=== PATIENT | female | born 1980 | race Caucasian/White ===

== ENCOUNTER 2025-09-19 09:58 | Outpatient (REF) | payer MEDICAID, SELFPAY | END 2025-09-19 09:59 | disposition home or self-care (01) | LOC: LBN 09:58 | PROVIDERS: PCP Family Medicine; Visit Provider Podiatrist | DX: S91.102A Unspecified open wound of left great toe without damage to nail, initial encounter (principal); L97.524 Non-pressure chronic ulcer of other part of left foot with necrosis of bone | CPT/HCPCS: 87070; 87075; 87205 ==

== ENCOUNTER 2025-09-19 10:19 | Inpatient (IN) | payer MEDICAID, SELFPAY ==
[2025-09-19] VITALS (27 sets, daily range): BP systolic 95–133; BP diastolic 55–80; PULSE 62–78; RESP 10–26; TEMP 36–36.7; O2SAT 96–100; BMI 33.3
--- NOTE | 2025-09-19 10:34 | W.ED.GENAD ---
Discharge Plan Disposition Patient Disposition: Admit to [facility] Discharge Details Clinical Impression: Diabetic ulcer of left great toe Attending Provider: Edel Reddy Primary Care Provider: Angel Wu ED Provider: Yaniv Long [facility] General Date/Time Provider Initiated Documentation: 09/19/25 10:32. HPI Narrative: MDM This is an overall well-appearing normothermic and not tachycardic 45-year-old diabetic female with left great toe infected ulcer for which podiatry plans to take patient to the OR. No pain out of proportion to suggest necrotizing soft tissue infection. Left foot warm and well-perfused so I am not suspicious for critical limb ischemia so I do not feel patient requires an emergent CT angiogram of her abdomen and pelvis with runoffs. Per recommendation from podiatry will defer MRI in favor of x-ray. Will keep patient n.p.o. She did have coffee this morning at approximately 6 AM but has otherwise been n.p.o. since midnight. Will order blood cultures but defer lactate as I was not suspicious for sepsis. I ordered a 500 cc crystalloid bolus. No ankle erythema nor effusion to suggest septic joint. Based on patient's age and lack of chest pain I did not order an ECG. 11:11 AM CBC with mild normocytic anemia and thrombocytosis. No prior for comparison. No leukocytosis. Mildly elevated ESR. 11:40 AM Basic metabolic panel with no acute electrolyte abnormalities. No prior for comparison. Normal renal function. Elevated CRP. Foot x-ray showing comminuted fracture of the proximal and distal phalanxes of the great toe with severe overlying soft tissue lacerations and deformities. I was in touch with Dr. Ruvalcaba from podiatry who evaluated the patient in clinic just prior to ED arrival. She will take the patient to the OR. I ordered 500 cc crystalloid bolus. I cover the patient with piperacillin/tazobactam and vancomycin. HPI The patient presents for evaluation of an ulcer on her left big toe. She is a diabetic and has been experiencing neuropathy, which led to the development of an ulcer on her left big toe. The condition escalated to cellulitis, necessitating a 10-day course of antibiotics. She reports no fevers, abdominal pain, respiratory distress, chest pain, or dysuria. Her last meal was consumed the previous night. She has an upcoming appointment on 10/03/2025 to check her A1c level. She admits to vaping but does not consume alcohol or use prescription drugs. Exam General: Well-appearing in no acute distress speaking in complete sentences. Head: Normocephalic, atraumatic. Eye: Extraocular eye movements intact. No conjunctival injection. No scleral icterus. Ear, nose, mouth, throat: Grossly normal inspection. Normal voice, handling secretions normally. Neck: Trachea midline. Cardiovascular: Well-perfused distal extremities. Respiratory: Nonlabored respiration. Gastrointestinal: Nondistended abdomen. Musculoskeletal: Left great foot with through and through ulcer of great toe from the medial to lateral side. No proximal streaking signs of infection. Cap refill less than 2 seconds in the left foot. Skin: Normal for age and race, grossly normal temperature and turgor. No acute rash. Neurologic: Alert and appropriate, no apparent acute deficits. GCS 15. Psychiatric: Mood and manner are appropriate. Grooming and personal hygiene are appropriate. Related Data Home Medications ?Medication ?Instructions ?Recorded ?Confirmed atorvastatin 40 mg tablet (Lipitor) 40 mg PO DAILY 09/15/25 09/19/25 buprenorphine 4 mg-naloxone 1 mg 1 film buccal Q24H 09/15/25 09/19/25 sublingual film (Suboxone) bupropion HCl 300 mg 24 hr tablet, 300 mg PO QAM 09/15/25 09/19/25 extended release dexlansoprazole 30 mg 30 mg PO DAILY 09/15/25 09/19/25 capsule,biphase delayed release (Dexilant) lisinopril 20 mg tablet 20 mg PO DAILY 09/15/25 09/19/25 omega 7-buu-cci-fish oil 1,000 mg 1 cap PO DAILY 09/15/25 09/19/25 (120 mg-180 mg) capsule (Fish Oil) rosuvastatin 20 mg sprinkle capsule 20 mg PO DAILY 09/15/25 09/19/25 tirzepatide 15 mg/0.5 mL 15 mg subcut QWEEK 09/15/25 09/19/25 subcutaneous pen injector (Mounjaro) venlafaxine 150 mg 150 mg PO DAILY 09/15/25 09/19/25 capsule,extended release 24 hr venlafaxine 75 mg capsule,extended 75 mg PO DAILY 09/15/25 09/19/25 release 24 hr lamotrigine 100 mg tablet 150 mg PO DAILY 09/19/25 09/19/25 Allergies Allergy/AdvReac Type Severity Reaction Status Date / Time grass pollen Allergy Mild Itching Verified 09/19/25 10:31 ragweed pollen Allergy Mild Itching Verified 09/19/25 10:31 General Stated Complaint: RashLesion STU: 3 Course Vital Signs Vital signs: Vital Signs Temperature 36.4 C 09/19/25 10:25 Pulse 70 09/19/25 10:25 Respiratory Rate 20 09/19/25 10:25 Blood Pressure 133/80 09/19/25 10:25 Pulse Oximetry 98 09/19/25 10:25 Temperature 36.4 C 09/19/25 10:25 Temperature Source Tympanic 09/19/25 10:25 Pulse 70 09/19/25 10:25 Respiratory Rate 20 09/19/25 10:25 Blood Pressure 133/80 09/19/25 10:25 Blood Pressure Position Sitting 09/19/25 10:25 Pulse Oximetry 98 09/19/25 10:25 Oxygen Delivery Method Room Air 09/19/25 10:25 Oxygen Flow Rate 0 09/19/25 10:25 PFSH All Active Problems (Updated 09/19/25 @ 11:23 by Yaniv Long MD) Diabetic ulcer of left great toe (Acute) Cellulitis (Acute) Osteomyelitis of great toe of left foot (Acute) Ulcer of left foot with necrosis of bone (Acute) Uncontrolled diabetes mellitus with hyperglycemia (Acute) Restless leg syndrome (Acute) Morbid obesity (Acute) Panic disorder (Acute) 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) Left hand pain (Acute) Knee pain (Acute) Hyperlipidemia (Acute) GERD (gastroesophageal reflux disease) (Chronic) Dystrophic nail (Acute) Depressive disorder (Chronic) Carpal tunnel syndrome (Acute) Bipolar disorder in remission (Acute) Benign essential hypertension (Acute) Allergic rhinitis (Acute) Trigger finger of left hand (Acute) Medical History Refractory migraine without aura Ureteric stone Toe ulcer, right Tension type headache Counseled by counselor Chronic ulcer of right foot Chronic ulcer of toe of left foot Surgical History H/O adenoidectomy Previous section History of hysteroscopy Social History Smoking risk assessment performed?: No
--- NOTE | 2025-09-19 10:45 | DI.RAD_ITS ---
Exam(s) XR FOOT LT COMPLETE EXAM: XR FOOT LT COMPLETE CLINICAL HISTORY: Left foot pain. TECHNIQUE: 2D digital imaging was performed. Three views. COMPARISON: No exams were available for comparison FINDINGS: BONES: Comminuted fractures involving the proximal and distal phalanges of the great toe. Portion of the distal phalanx are missing. The remaining toes appear intact. JOINTS: No dislocation present. SOFT TISSUE: Large soft tissue lacerations right toe and severe soft tissue swelling. Overlying gauze. No radiopaque foreign body. IMPRESSION: Comminuted fractures of the proximal and distal phalanges of the great toe with severe overlying soft tissue lacerations and deformities. DATA REPOSITORY: RADIATION DOSE DELIVERED:
[2025-09-19 10:59] LABS: Abs Immature Grans 0.04 10^3/uL (0.0-0.06); HCT 34.0 % (36.0-46.0); HGB 10.9 g/dL (11.2-15.7); Immature Grans % 0.4 %; MCH 29.7 pg (27.0-33.0); MCHC 32.1 % (32.0-36.0); MCV 93 fL (80-95); MPV 9.8 fL (8.0-11.0); Platelet Count 457 10^3/uL (130-400); RBC 3.67 10^6/uL (3.93-5.22); RDW 12.4 % (11.7-14.6); RDW-SD 41.7 fL; WBC 9.16 10^3/uL (4.4-10.8)
[2025-09-19 11:00] LABS: ESR 30 mm/hr (0-20)
[2025-09-19 11:18] LABS: C-Reactive Protein 1.42 mg/dL (<=0.50)
[2025-09-19 11:19] LABS: Anion Gap 8.8 mmol/L (3-11); BUN 13 mg/dL (9-23); CO2 30.2 mmol/L (20.0-31.0); Calcium 9.3 mg/dL (8.3-10.6); Chloride 101 mmol/L (98-107); Glucose 87 mg/dL (74-106); Potassium 3.9 mmol/L (3.5-5.1); Sodium 140 mmol/L (136-145)
[2025-09-19 11:32] LABS: HCG Qual (Serum) Negative
[2025-09-19] MEDS: Normal Saline 500 ML IV (11:37)
[2025-09-19] MEDS: PIPERACILLIN/TAZO 4.5 GM in Normal Saline 100 ML IVPB (11:45)
[2025-09-19] MEDS: Lactated Ringers 1,000 ML 30 ML IV (12:50)
--- NOTE | 2025-09-19 12:58 | W.ANESPRE ---
General Info Date of Service Date Performed: 09/19/25 Height: 5 ft 5 in Weight: 90.718 kg Body Mass Index (BMI): 33.3 Surgical Procedure: Operation Date: 09/19/25 12:40 Proposed Procedure Side Surgeon p Toe Amputation, LT Great Toe Left Nhung Madrigal DPM Meds Allergies and Home Medications Allergies Allergy/AdvReac Type Severity Reaction Status Date / Time grass pollen Allergy Mild Itching Verified 09/19/25 10:31 ragweed pollen Allergy Mild Itching Verified 09/19/25 10:31 Home Medication ?Medication ?Instructions ?Recorded atorvastatin 40 mg tablet (Lipitor) 40 mg PO DAILY 09/15/25 buprenorphine 4 mg-naloxone 1 mg 1 film buccal Q24H 09/15/25 sublingual film (Suboxone) bupropion HCl 300 mg 24 hr tablet, 300 mg PO QAM 09/15/25 extended release dexlansoprazole 30 mg 30 mg PO DAILY 09/15/25 capsule,biphase delayed release (Dexilant) lisinopril 20 mg tablet 20 mg PO DAILY 09/15/25 omega 5-lkp-oqu-fish oil 1,000 mg 1 cap PO DAILY 09/15/25 (120 mg-180 mg) capsule (Fish Oil) rosuvastatin 20 mg sprinkle capsule 20 mg PO DAILY 09/15/25 tirzepatide 15 mg/0.5 mL 15 mg subcut QWEEK 09/15/25 subcutaneous pen injector (Mounjaro) venlafaxine 150 mg 150 mg PO DAILY 09/15/25 capsule,extended release 24 hr venlafaxine 75 mg capsule,extended 75 mg PO DAILY 09/15/25 release 24 hr lamotrigine 100 mg tablet 150 mg PO DAILY 09/19/25 Current Visit Medications: Current Medications Generic Name Dose Route Start Last Admin Trade Name Freq PRN Reason Stop Dose Admin Vancomycin/PEG/NADA/Lysine/Water 1.75 gm in 350 mls @ 175 mls/hr 09/19/25 12:15 Vancocin Injection IVPB 09/19/25 14:14 NOW ONE PFSH Active Problems Active Problems: Problem Status Onset Code Diabetic ulcer of left great toe Acute E11.621, L97.529 Cellulitis Acute L03.90 Osteomyelitis of great toe of left foot Acute M86.9 Ulcer of left foot with necrosis of bone Acute L97.524 Uncontrolled diabetes mellitus with hyperglycemia Acute E11.65 Restless leg syndrome Acute G25.81 Morbid obesity Acute E66.01 Panic disorder 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 Acute Z79.899 Left hand pain Acute M79.642 Knee pain Acute M25.569 Hyperlipidemia Acute E78.5 GERD (gastroesophageal reflux disease) Chronic K21.9 Dystrophic nail Acute L60.3 Depressive disorder Chronic F32.A Carpal tunnel syndrome Acute G56.00 Bipolar disorder in remission Acute F31.70 Benign essential hypertension Acute I10 Allergic rhinitis Acute J30.9 Trigger finger of left hand Acute M65.30 Medical History Medical History Refractory migraine without aura Ureteric stone Toe ulcer, right Tension type headache Counseled by counselor Chronic ulcer of right foot Chronic ulcer of toe of left foot Surgical History Surgical History H/O adenoidectomy Previous section History of hysteroscopy Vital Signs and Lab Results Vital Signs Most Recent Vital Signs in EMR: Most Recent Vital Signs Temp Pulse Resp BP Pulse Ox 36.7 C 76 14 117/71 100 09/19/25 11:27 09/19/25 11:27 09/19/25 11:27 09/19/25 11:27 09/19/25 11:27 Lab Results 09/19/25 10:49 09/19/25 10:49 Complete Blood Count: WBC, (4.4-10.8) 9.16 10^3/uL Today, 10:49 RBC, (3.93-5.22) 3.67 10^6/uL L Today, 10:49 Hgb, (11.2-15.7) 10.9 g/dL L Today, 10:49 Hct, (36.0-46.0) 34.0 % L Today, 10:49 Plt Count, (130-400) 457 10^3/uL H Today, 10:49 Complete Metabolic Panel: Sodium, (136-145) 140 mmol/L Today, 10:49 Potassium, (3.5-5.1) 3.9 mmol/L Today, 10:49 Chloride, (98-107) 101 mmol/L Today, 10:49 Carbon Dioxide, (20.0-31.0) 30.2 mmol/L Today, 10:49 BUN, (9-23) 13 mg/dL Today, 10:49 Creatinine, (0.55-1.02) 0.6 mg/dL Today, 10:49 Est GFR (CKD-EPI 2020), (mL/min/1.73m2) 101.03 Today, 10:49 Calcium, (8.3-10.6) 9.3 mg/dL Today, 10:49 Glucose, (74-106) 87 mg/dL Today, 10:49 C-Reactive Protein, (<=0.50) 1.42 mg/dL H Today, 10:49 Panel: Serum HCG, Qual Negative Today, 10:49 Anesthesia Assessment and Plan Anesthesia History Personal History: No History of Anesthesia Complications Family History: No Family History of Anesthesia Complications Exercise Tolerance Exercise Tolerance: Metabolic Equivalents>4 Pertinent Negatives Pertinent Negatives: No Symptoms of GERD Cardiac & Pulmonary Exam Cardiac Exam: Normal S1/S2 Heart Sounds Pulmonary Exam: Clear Bilateral Breath Sounds Implantable Cardiac Device Does patient have a Pacemaker or an ICD?: No Airway Exam Known Difficult Airway: No Mallampati Class: 2 Mouth Opening: Normal (> 3cm) Thyromental Distance: Greater than 3 cm Neck Range of Motion: Full ROM Neck Circumference: Normal Teeth Condition: Normal Dentition ASA Classification ASA Score: ASA 3 Emergency Case?: Yes NPO Status NPO Status: NPO Clears >2 hours, Solids >8 hours Status Status: Negative HCG Anesthesia Plan Resuscitation Status: Full Code Anesthesia Technique: General Anesthesia Airway Planned: Endotracheal Tube Monitors Used: Standard Monitors
[2025-09-19] MEDS: VANCOMYCIN/WATER (PEG) 1.75 GM/350 ML BAG IVPB (13:10)
[2025-09-19] MEDS: Lidocaine 1% Pres-Free 30 ML VIAL (13:26)
--- NOTE | 2025-09-19 13:35 | AMP_PTH ---
PATIENT: Kimberly Astudillo LOC: U#:[id number] AGE/SX: 45/F ROOM: [id number] RE09/19/[address]: Yaniv Blake : 1980 BED: A DIS: 09/22/2025 SPEC #: [id number] RECD: 09/19/25 17:32 STATUS: CALEB REQ #: [id number] ANDRI[place]: 09/19/25 13:[address]: Nhung Madrigal DEPT: Surgical Specimen RECD BY: Bridgette Vargas ENTERED: 09/19/25 17:34 SP TYPE: Amputation OTHR DR: Jeet Beltran [facility] [place] Tissues: 1 - AMPUTATION FINGERS/TOES(NOT TRAUMA) 2 - SKIN CYST/TAG/DEBRIDEMENT Procedures: GROSS AND MICRO LEVEL 4 GROSS AND MICRO LEVEL 3 DECALCIFICATION Comments: [id number]
[2025-09-19] MEDS: Thrombin 5,000 UNITS VIAL 5000 UNITS TP (14:24)
[2025-09-19] MEDS: Cellulose,Oxidized 4X8 1 PACKET MC (14:24)
--- NOTE | 2025-09-19 15:00 | DI.RAD_ITS ---
Exam(s) XR FOOT LT COMPLETE EXAM: XR FOOT LT COMPLETE CLINICAL HISTORY: Post Partial first ray amputation. TECHNIQUE: 2D digital imaging was performed. COMPARISON: CR XR TOE(S) MIN 2V LT from 09/11/2025 CR XR FOOT LT COMPLETE from 09/19/2025 FINDINGS: 3 views There has been interval amputation of the great toe at the mid metatarsal level. The amputated bone age is sharp with no evidence of osteomyelitis. There is no radiopaque foreign body. There is no significant gas in the soft tissues. Other bones of the foot appear intact and there is no offset of the main Lisfranc joint. IMPRESSION: Great toe amputation at the mid metatarsal level. DATA REPOSITORY: RADIATION DOSE DELIVERED:
--- NOTE | 2025-09-19 15:00 | W.PM.OP ---
Operative Note Operative Note PRE-OP DIAGNOSIS: Osteomyelitis left great toe Nonhealing ulcer to the level of subcutaneous tissue, left fourth toe POST-OP DIAGNOSIS: same PROCEDURE: Partial first ray amputation, left foot Excisional debridement left fourth toe ulcer measuring 0.5 x 0.3 x 0.3 cm with sterile #15 blade SURGEON: Nhung Madrigal ANESTHESIA TYPE: Local By Surgeon (21 mL 1% lidocaine plain preop) Refer to Anesthesia Record ESTIMATED BLOOD LOSS: 350 PATHOLOGY: other (Soft tissue and bone with margins sent separately, left foot ) COMPLICATIONS: Other (Bleeding) Patient was transported to: PACU Patient's condition: stable Indications: 45-year-old female patient was seen here in the office today with full-thickness ulceration to bone of the left hallux. Bone was noted to be soft and very easily removed with pickups alone. This was sent to micro as well as pathology. I recommended an amputation of the left hallux versus partial first ray amputation to allow these wounds to heal she has also failed antibiotics as per the patient that the osteomyelitis persists I did also discuss IV antibiotics however that would most likely failed since it has already failed with p.o. antibiotics. This was medically/surgically necessary due to failure of antibiotics and risk for sepsis, more proximal amputation Findings: Soft, necrotic bone to the right hallux including the proximal phalanx. Some purulence noted in the MPJ level as well. First metatarsal noted to be healthy bone quality. Procedure Description: Patient was identified in preop holding. Site was marked. Consent form signed reviewed and in chart. Patient was then brought to the operating room placed on the operating table with the anesthesia team. After induction of general anesthesia, local anesthesia was performed via a Fischer block fashion with using 21 mL of 1% lidocaine plain preoperatively. An incision was planned just distal to the first MPJ via a fishmouth type incision with sterile markers. Incision was made using a sterile #15 blade this was carried out full-thickness there was noted to be some purulence at the MPJ level therefore a decision in favor of a partial first ray was made to allow for adequate soft tissue resection as well as a proper closure without tension. A semielliptical incision was then made dorsally followed by semielliptical incision plantarly just distal to the metatarsal head level this incision was carried deep to the skin and subcutaneous tissue full-thickness to the level of bone. The first metatarsal head was freed of all soft tissue attachments using a sterile #15 blade next, a bone saw was used to resect the first ray in the standard first ray amputation manner with a dorsal distal and plantar proximal angled resection. All sharp edges were then rasped. This was then freed and passed from the operative site. The toe was sent to pathology as well. The incision site was then irrigated copiously with pulse lavage 3 L bag of saline. Heavy bleeding was noted from the incision. All bleeders were ligated and cauterized with a combination of 0 and 2-0 Vicryl, electrocautery, Surgicel, thrombin. Heavy bleeding was noted TXA was given to the patient for the bleeding. Upon adequate control of bleeding deep stitches were made using 0 Vicryl. The skin was then reapproximated using 2-0 Prolene. A PAULINO dressing was then applied followed by 4 x 4, Kerlix and silk tape. Patient is to keep the dressings clean, dry and intact. She is to keep nonweightbearing to the left lower extremity. She is to use cam boot with crutches. I recommend continued IV antibiotics. Will follow cultures. Date of Procedure: 09/19/25
--- NOTE | 2025-09-19 15:22 | W.ANESPOSTOP ---
Postoperative Evaluation Date, Time and Location Date Performed: 09/19/25 Time Performed: 15:22 Patient Location: PACU Vital Signs Most Recent Imported Vital Signs: Most Recent Vital Signs Temp Pulse Resp BP Pulse Ox 36.5 C 71 18 115/62 100 09/19/25 15:01 09/19/25 15:01 09/19/25 15:01 09/19/25 15:01 09/19/25 15:01 Pain Score Most Recent Pain Score: Most Recent Pain Score Pain Level 0 09/19/25 11:27 Assessment Mental Status: Awake (Alert & Oriented to Patient Baseline) Airway and Respiratory Function: Patent airway with normal (patient baseline) respiratory exam Cardiovascular Function: Hemodynamically Stable Hydration Status: Adequately Hydrated Nausea & Vomiting: No Nausea or Vomiting Pain: Pt. Denies Any Pain Peripheral Nerve Block: Patient did not receive a nerve block
--- NOTE | 2025-09-19 16:32 | W.PM.OP ---
Operative Note Operative Note POST-OP DIAGNOSIS: same PROCEDURE: Partial first ray amputation, left foot Excisional debridement left fourth toe ulcer measuring 0.5 x 0.3 x 0.3 cm with sterile #15 blade ANESTHESIA TYPE: Local By Surgeon (21 mL 1% lidocaine plain preop) Refer to Anesthesia Record ESTIMATED BLOOD LOSS: 350 PATHOLOGY: other (Soft tissue and bone with margins sent separately, left foot ) Patient was transported to: PACU Patient's condition: stable Implants: Partial first ray amputation, left foot Excisional debridement left fourth toe ulcer measuring 0.5 x 0.3 x 0.3 cm with sterile #15 blade Date of Procedure: 09/19/25
--- NOTE | 2025-09-19 16:33 | W.PODCONSULT ---
Date of service: 09/19/25 Time of Service: 11:30 Assessment and Plan Assessment and plan (1) Diabetic ulcer of left great toe: Status: Acute (2) Cellulitis: Status: Acute (3) Osteomyelitis of great toe of left foot: Status: Acute (4) Ulcer of left foot with necrosis of bone: Status: Acute (5) Uncontrolled diabetes mellitus with hyperglycemia: Status: Acute Assessment and plan: Patient was seen again in the ER today. Discussed the benefits of a partial first ray amputation. I did recommend a partial first ray amputation to her. She has been n.p.o. since midnight and therefore we will proceed with surgery. Please see office visit note for further details History of Present Illness Narrative: Patient was seen for infected ulcer with osteomyelitis to the left hallux. 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 (Acute) Left hand pain (Acute) Knee pain (Acute) Hyperlipidemia (Acute) GERD (gastroesophageal reflux disease) (Chronic) Dystrophic nail (Acute) Depressive disorder (Chronic) Carpal tunnel syndrome (Acute) Bipolar disorder in remission (Acute) Benign essential hypertension (Acute) Allergic rhinitis (Acute) Trigger finger of left hand (Acute) Medical History Refractory migraine without aura Ureteric stone Toe ulcer, right Tension type headache Counseled by counselor Chronic ulcer of right foot Chronic ulcer of toe of left foot Surgical History H/O adenoidectomy Previous section History of hysteroscopy Social History Smoking risk assessment performed?: No Housing: house Exam Extrem Other: Please refer to my office note from today Results Last Vital Signs Temp 96.8 F L 09/19/25 16:15 Pulse 68 09/19/25 16:15 Resp 16 09/19/25 16:15 BP 100/58 L 09/19/25 16:15 Pulse Ox 99 09/19/25 16:15 Labs 09/19/25 10:49 09/19/25 10:49 Labs: Laboratory Results - last 24 hr 09/19/25 10:49 WBC 9.16 RBC 3.67 L Hgb 10.9 L Hct 34.0 L MCV 93 MCH 29.7 MCHC 32.1 RDW 12.4 Plt Count 457 H MPV 9.8 Immature Gran % 0.4 Neutrophils % 58.4 Lymphocytes % 33.6 Monocytes % 4.6 Eosinophils % 2.3 Basophils % 0.7 Nucleated RBC % 0.0 Absolute Neutrophils 5.35 Absolute Lymphocytes 3.08 Absolute Monocytes 0.42 Absolute Eosinophils 0.21 Absolute Basophils 0.06 ESR 30 H Sodium 140 Potassium 3.9 Chloride 101 Carbon Dioxide 30.2 Anion Gap 8.8 BUN 13 Creatinine 0.6 Est GFR (CKD-EPI 2020) 101.03 Glucose 87 Calcium 9.3 C-Reactive Protein 1.42 H Serum HCG, Qual Negative
[2025-09-19 16:35] LABS: HCT 29.7 % (36.0-46.0); HGB 9.6 g/dL (11.2-15.7)
--- NOTE | 2025-09-19 16:39 | NUR.NOTE ---
Nursing Note: pt admitted from PACU via stretcher pt alert and oriented x4 pt offered no complaints denies pain full admission done skin check done pt has a PAULINO DSG on lt foot with kerlix CDI pt tolerating water. pt voided using BSC st. by assist call garcia at side Bed alarm on safety maintained
[2025-09-19 17:06] LABS: Vancomycin, Random 32.3 ug/mL
--- NOTE | 2025-09-19 17:26 | W.PM.HP.N ---
Date of service: 09/19/25 Time of Service: 17:26 Assessment and Plan Assessment and plan (1) Osteomyelitis of great toe of left foot: Status: Acute Assessment and plan: S/p amputation. Bone cultures pending. Will continue pip/tazo to cover pseudomonas and vancomycin to cover MRSA with cultures pending, then narrow. She was upset that she will need prolonged antibiotics. She would like to do outpatient therapy as soon as it is safe. Will d/w ID after cultures return. She will likely need 2 weeks of IV antibiotics, then oral. Non-weight bearing with boot, PT ordered. For pain, given relatively low buprenorphine dose can take additional 2mg doses prn to treat acute pain. (2) Diabetic ulcer of left great toe: Status: Acute Assessment and plan: wound care per podiatry, has vac dressing now. (3) GERD (gastroesophageal reflux disease): Status: Chronic Assessment and plan: continue outpatient PPI. (4) Benign essential hypertension: Status: Acute Assessment and plan: continue outpatient therapy. She is on lisinopril, s/p hysterectomy so no risk. (5) Bipolar disorder in remission: Status: Acute Assessment and plan: Continue outpatient therapy, monitor mood. (6) Opioid dependence on agonist therapy: Assessment and plan: In stable remission, has been on prolonged taper of Suboxone. Can use additional 2mg doses as above for acute pain. (7) Type 2 diabetes, controlled, with neuropathy: Assessment and plan: last A1c 6.8% per report, on just tirzepatide, which she just took 09/18. Repeat A1c with AM labs. ISS low prn. (8) Morbid obesity: Status: Acute Assessment and plan: Loosing weight with tirzepatide. (9) Blood loss: Status: Acute Assessment and plan: Surgical, now hemostatic. She does have a baseline anemia as well. Repeat CBC in am with iron/b12 levels. History of Present Illness History of Present Illness Chief Complaint: Foot wound Narrative: 45 yo F with diabetes with neuropathy, opioid use disorder, treated bipolar disorder who was sent up from Dr. Madrigal from podiatry after an amputation of her left 1st toe. She states the sore started about 4 weeks ago, she thinks related to a pressure wound. With her neuropathy she did not remember an injury, but she doesn't have much sensation in her toes. Sores on 1st and 4th digits and redness spreading from around the wounds. She was given a course of antibiotics by her PCP in [place] (cefadroxil and doxycycline x 10 days starting 09/09/25), but the redness continued. In the last few days it opened up and has been draining. She has not had fever/chills or other systemic symtoms. Pain has not been severe. She was referred to podiatry and seen this morning and she was sent to the ED for admission. She was taken to the OR today for debridement. Dr. Madrigal removed necrotic tissue down the bone. She underwent a partial first ray amputation of his left toe and incisional debridement of her left 4th toe ulcer. She did have about 350ml EBL. Currently she feels okay. She feels like she could eat, no N/V. It does hurt with movement, but having very little pain since her surgery. 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 (Acute) Left hand pain (Acute) Knee pain (Acute) Hyperlipidemia (Acute) GERD (gastroesophageal reflux disease) (Chronic) Dystrophic nail (Acute) Depressive disorder (Chronic) Carpal tunnel syndrome (Acute) Bipolar disorder in remission (Acute) Benign essential hypertension (Acute) Allergic rhinitis (Acute) Trigger finger of left hand (Acute) Medical History (Updated 09/19/25 @ 18:10 by Yaniv Blake) Type 2 diabetes, controlled, with neuropathy Opioid dependence on agonist therapy Refractory migraine without aura Ureteric stone Toe ulcer, right Tension type headache Counseled by counselor Chronic ulcer of right foot Chronic ulcer of toe of left foot Surgical History H/O adenoidectomy Previous section History of hysteroscopy Social History (Updated 11/18/25 @ 17:55 by Yaniv Blake) Smoking/Tobacco Use Status: Current every day Tobacco Type: e-cigarettes Smokeless tobacco user: other Counseling given: provider counseling, support medications and counseling >3 minutes Smoking risk assessment performed?: Yes Alcohol Intake: never Drug use: Never Housing: house Additional Social history: Lives with her long-term partner and 15 and 23 yo children in [place]. Not working currently Meds Allergies and Home Medications Allergies Allergy/AdvReac Type Severity Reaction Status Date / Time grass pollen Allergy Mild Itching Verified 09/19/25 10:31 ragweed pollen Allergy Mild Itching Verified 09/19/25 10:31 Home Medications ?Medication ?Instructions ?Recorded ?Confirmed ?Type atorvastatin 40 mg tablet (Lipitor) 40 mg PO DAILY 09/15/25 09/19/25 History buprenorphine 4 mg-naloxone 1 mg 1 film buccal Q24H 09/15/25 09/19/25 History sublingual film (Suboxone) bupropion HCl 300 mg 24 hr tablet, 300 mg PO QAM 09/15/25 09/19/25 History extended release dexlansoprazole 30 mg 30 mg PO DAILY 09/15/25 09/19/25 History capsule,biphase delayed release (Dexilant) lisinopril 20 mg tablet 20 mg PO DAILY 09/15/25 09/19/25 History omega 0-iso-wjp-fish oil 1,000 mg 1 cap PO DAILY 09/15/25 09/19/25 History (120 mg-180 mg) capsule (Fish Oil) rosuvastatin 20 mg sprinkle capsule 20 mg PO DAILY 09/15/25 09/19/25 History tirzepatide 15 mg/0.5 mL 15 mg subcut QWEEK 09/15/25 09/19/25 History subcutaneous pen injector (Mounjaro) venlafaxine 150 mg 150 mg PO DAILY 09/15/25 09/19/25 History capsule,extended release 24 hr venlafaxine 75 mg capsule,extended 75 mg PO DAILY 09/15/25 09/19/25 History release 24 hr lamotrigine 100 mg tablet 150 mg PO DAILY 09/19/25 09/19/25 History Exam Narrative Exam Narrative: GEN: Alert and oriented x 4, pleasant and cooperative, gives linear history. No acute distress at rest. HEENT: Head atraumatic. Conjunctiva clear, no icterus. PEERL, EOMI. no rhinorrhea. MMM, OP benign. Neck is supple with no masses or lymphadenopathy, trachea midline LUNGS: CTAB with normal effort CV: RRR with no murmurs, gallops, or rubs. ABD: active bowel sounds, soft, nontender and nondistended. No masses. EXT: no cyanosis, clubbing, or edema. Left foot bandaged, see podiatry note for pictures of the wound. Cap refill <2 sec distal toes MSK: No joint redness or swelling NEURO: CN 2-12 grossly intact. Normal movement of 4 extremities. Normal speech and coordination. No tremor SKIN: No rashes. Wound dressed, see photos. No redness tracking up left leg, no LAD. PSYCH: normal mood and affect, nl thought process, tearful when discussing possible long admission to hospital. Results Imaging Additional studies: XR left foot pre-op: Comminuted fractures of the proximal and distal phalanges of the great toe with severe overlying soft tissue lacerations and deformities. XR left foot post-op: Great toe amputation at the mid metatarsal level. Labs 09/19/25 16:30 09/19/25 10:49 Labs: Laboratory Results - last 24 hr 09/19/25 09/19/25 10:49 16:30 WBC 9.16 RBC 3.67 L Hgb 10.9 L 9.6 L Hct 34.0 L 29.7 L MCV 93 MCH 29.7 MCHC 32.1 RDW 12.4 Plt Count 457 H MPV 9.8 Immature Gran % 0.4 Neutrophils % 58.4 Lymphocytes % 33.6 Monocytes % 4.6 Eosinophils % 2.3 Basophils % 0.7 Nucleated RBC % 0.0 Absolute Neutrophils 5.35 Absolute Lymphocytes 3.08 Absolute Monocytes 0.42 Absolute Eosinophils 0.21 Absolute Basophils 0.06 ESR 30 H Sodium 140 Potassium 3.9 Chloride 101 Carbon Dioxide 30.2 Anion Gap 8.8 BUN 13 Creatinine 0.6 Est GFR (CKD-EPI 2020) 101.03 Glucose 87 Calcium 9.3 C-Reactive Protein 1.42 H Serum HCG, Qual Negative Random Vancomycin 32.3 Last Vital Signs Temp 36.0 C L 09/19/25 16:15 Pulse 68 09/19/25 16:15 Resp 16 09/19/25 16:15 BP 100/58 L 09/19/25 16:15 Pulse Ox 99 09/19/25 16:15 VTE Prohylaxis Risk Level: Moderate/High Risk (kylie 5) Contraindications: None Prophylaxis: Pharmacologic (enoxaparin) Time Spent Time spent with Patient: 55-74 minutes Time was spent: preparing to see the patient(eg.review tests), obtaining and/or reviewing separately otained hiistory, ordering medications,tests, procedures, referring, communicating with other health daytime caregiver, indepentently interpreting results, counseling the patient and care coordination
[2025-09-19] MEDS: PIPERACILLIN/TAZO 3.375 GM in Normal Saline 50 ML IVPB (17:51)
[2025-09-19] MEDS: Buprenorphine/Naloxone 4 mg/1 mg FILM 1 EACH SL (17:52)
[2025-09-19] MEDS: buPROPion-XL 150 MG TABCR 300 MG PO (20:28)
[2025-09-19] MEDS: Omega-3 Fatty Acids 1000 MG CAP PO (20:28)
[2025-09-19] MEDS: Venlafaxine 75 MG CAPCR 225 MG PO (20:29)
[2025-09-19] MEDS: Rosuvastatin 20 MG TAB PO (20:29)
[2025-09-19] MEDS: Nicotine 4 MG GUM CH (20:31)
[2025-09-19] MEDS: Dexlansoprazole 30 MG CAP PO (20:40)
[2025-09-19] MEDS: Normal Saline Flush 10 ML SYR (20:52)
[2025-09-19] MEDS: lamoTRIgine 100 MG TAB 250 MG PO (20:55)
[2025-09-19] MEDS: Buprenorphine 2 MG SUBLINGUAL TABLET SL (22:35)
[2025-09-20] MEDS: PIPERACILLIN/TAZO 3.375 GM in Normal Saline 50 ML IVPB ×4 (00:30→17:37)
[2025-09-20] MEDS: Normal Saline Flush 10 ML SYR IVP ×6 (00:30→19:43)
[2025-09-20] MEDS: MORPHine 2 MG/ML SYR IVP ×3 (01:09→19:42)
[2025-09-20 01:44] VITALS: BP 98/59; PULSE 72; RESP 16; TEMP 36.2; O2SAT 99
[2025-09-20] MEDS: VANCOMYCIN/WATER (PEG) 1.5 GM/300 ML BAG IVPB ×2 (02:25→15:07)
[2025-09-20 06:26] VITALS: BP 100/60; PULSE 72; RESP 16; TEMP 36; O2SAT 97
[2025-09-20 06:48] LABS: HCT 27.1 % (36.0-46.0); HGB 8.9 g/dL (11.2-15.7); MCH 31.0 pg (27.0-33.0); MCHC 32.8 % (32.0-36.0); MCV 94 fL (80-95); MPV 9.9 fL (8.0-11.0); Platelet Count 365 10^3/uL (130-400); RBC 2.87 10^6/uL (3.93-5.22); RDW 12.3 % (11.7-14.6); RDW-SD 41.9 fL; WBC 8.59 10^3/uL (4.4-10.8)
[2025-09-20 07:11] LABS: Iron 38 ug/dL (50-170); Total Iron Binding Capacity 222 ug/dL (250-425); Transferrin Sat 17 % (15-50)
[2025-09-20 07:29] LABS: Vitamin B12 393 pg/mL (211-911)
[2025-09-20 07:38] VITALS: BP 108/63; PULSE 75; RESP 18; TEMP 35.6; O2SAT 97
[2025-09-20] MEDS: Enoxaparin 40 MG/0.4 ML SYR SC (08:38)
--- NOTE | 2025-09-20 08:45 | PGE_ITS ---
Date of Service Date of service: 09/20/25 Time of Service: 08:20 Assessment and Plan Assessment and plan (1) Diabetic ulcer of left great toe: Status: Acute (2) Cellulitis: Status: Acute (3) Osteomyelitis of great toe of left foot: Status: Acute (4) Ulcer of left foot with necrosis of bone: Status: Acute (5) Uncontrolled diabetes mellitus with hyperglycemia: Status: Acute (6) Blood loss: Status: Acute (7) Type 2 diabetes, controlled, with neuropathy: Assessment and plan: Patient was seen bedside. Resting comfortably. Does report a headache. Pain controlled at this time. She states she is anxious to have back home. Labs were reviewed she did lose blood yesterday were reviewed she did lose blood yesterday intraoperatively. H&H did drop. Will defer management to the medicine team. I recommend a high protein intake for wound healing. PAULINO removed there are dressings applied with Xeroform gauze, 4 x 4, Kerlix and an Jeffrey wrap. Patient remained nonweightbearing to the left foot. She is to use a surgical shoe. I recommend crutches. Reviewed. Recommend PT evaluation. Recommend continued IV antibiotics with Vanco and Zosyn. Subjective Subjective Interval history since last seen: Patient was seen bedside today resting comfortably. She is status post partial first ray amputation, left foot. Reports difficulty with the PAULINO overnight which she states was discontinued. Does report pain alleviated by morphine which she received last night. Currently reports a headache. States she is anxious to go home Exam Extrem Other: Left lower extremity physical exam Skin: Dressing noted to be clean, dry and intact. Paulino in place however turned off due to malfunctioning. Some sanguinous drainage noted to the paulino VAC. Upon removal of PAULINO, sutures noted to be clean, dry and intact no signs of dehiscence erythema now completely resolved some edema persists. No drainage no malodor no active bleeding noted no purulence no crepitus no bogginess no proximal streaking or lymphangitis no signs of dehiscence. Vascular: Skin appears well-perfused CFT is brisk no sign of gangrene or cyanosis to the skin edges. MSK: Pain reported to the left foot. Neuro: Light touch absent Objective Last Vital Signs Temp 96.1 F L 09/20/25 07:38 Pulse 75 09/20/25 07:38 Resp 18 09/20/25 07:38 BP 108/63 09/20/25 07:38 Pulse Ox 97 09/20/25 07:38 Laboratory Results - last 24 hr 09/19/25 09/19/25 09/20/25 10:49 16:30 06:08 WBC 9.16 8.59 RBC 3.67 L 2.87 L Hgb 10.9 L 9.6 L 8.9 L Hct 34.0 L 29.7 L 27.1 L MCV 93 94 MCH 29.7 31.0 MCHC 32.1 32.8 RDW 12.4 12.3 Plt Count 457 H 365 MPV 9.8 9.9 Immature Gran % 0.4 Neutrophils % 58.4 Lymphocytes % 33.6 Monocytes % 4.6 Eosinophils % 2.3 Basophils % 0.7 Nucleated RBC % 0.0 Absolute Neutrophils 5.35 Absolute Lymphocytes 3.08 Absolute Monocytes 0.42 Absolute Eosinophils 0.21 Absolute Basophils 0.06 ESR 30 H Sodium 140 Potassium 3.9 Chloride 101 Carbon Dioxide 30.2 Anion Gap 8.8 BUN 13 Creatinine 0.6 Est GFR (CKD-EPI 2020) 101.03 Glucose 87 Calcium 9.3 Iron 38 L TIBC 222 L Transferrin % Sat 17 C-Reactive Protein 1.42 H Vitamin B12 393 Serum HCG, Qual Negative Random Vancomycin 32.3 Time Spent with Patient Time Spent with Patient: 35-49 minutes Time was spent: preparing to see the patient(eg.review tests), obtaining and/or reviewing separately otained hiistory, ordering medications,tests, procedures, referring, communicating with other health healthcare specialist, indepentently interpreting results, counseling the patient and care coordination
[2025-09-20 08:58] LABS: Hemoglobin A1C 6.1 % (<5.7)
--- NOTE | 2025-09-20 10:08 | PT.INIE ---
PT Notes Visit Reasons: Osteomyelitis Physical Therapy Inpatient Initial Evaluation Date: 09/20/2025 Referring Doctor: Yaniv Blake MD PT Orders: PT CONSULT: Eval for Assistive Device, L first toe amputation, non-weight bearing Precautions: Fall. Standard. NWB through L LE per Dr Madrigal and Dr. Blake Patient Profile/Admitting Diagnosis: Kimberly is a 45-year-old female with diagnosis of nonhealing diabetic ulcer to the level of subcutaneous tissue on the left fourth toe as well as osteomyelitis of the left great toe status post excisional debridement of the left fourth toe and status post partial first ray amputation of the left foot on postoperative day 1. 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) Left hand pain (Acute) Knee pain (Acute) Hyperlipidemia (Acute) GERD (gastroesophageal reflux disease) (Chronic) Dystrophic nail (Acute) Depressive disorder (Chronic) Carpal tunnel syndrome (Acute) Bipolar disorder in remission (Acute) Benign essential hypertension (Acute) Allergic rhinitis (Acute) Trigger finger of left hand (Acute) Medical History (Updated 09/19/25 @ 18:10 by Yaniv Blake) Type 2 diabetes, controlled, with neuropathy Opioid dependence on agonist therapy Refractory migraine without aura Ureteric stone Toe ulcer, right Tension type headache Counseled by counselor Chronic ulcer of right foot Chronic ulcer of toe of left foot Surgical History H/O adenoidectomy Previous section History of hysteroscopy Social History/Home Situation: Lives with and 15-year-old in a private home with one step to enter. HAs a flight of steps to the 2nd floor of the house where the bedroom is. Equipment Owned/DME: knee scooter Subjective: Reported pain at 4/10 on the L foot at rest and with movement. denied headache, chest pain, and lightheadedness throughout session. Objective: General Observation: Resting in bed. Surgical dressing on L foot. IV access through R UE. Mental Status: Alert and oriented as to person, place, time, and purpose. Able to pay attention, focus, and respond appropriately. Pain: 4/10 in the L foot Vital Signs: Closely monitored by nursing staff ROM: Left Lower Extremity: Hip flexion WFL. Hip abduction WFL. Knee flexion WFL. Ankle dorsiflexion NT. Ankle plantarflexion NT. Strength: Left Lower Extremity: Hip flexors 5/5. Hip abductors 5/5. Knee flexors 5/5. Knee extensors 4/5. Ankle dorsiflexors NT. Ankle plantarflexors NT. Bed Mobility/Transfers: Minimal cueing provided for use of B hands as needed for support, movement sequence, AD management, and posture to reduce fall risk and minimize pain report Rolling supervision Supine to sit supervision Sit to supine supervision Sit to stand stand by assist with FWW Stand to sit stand by assist with FWW Bed to reclining chair stand by assist with FWW Gait: 30 feet with FWW with stand by assist only. NWB through the L LE. Post-op shoe on L foot. Minimal cues given for AD management and efficient weight distribution. No report of increased pain. Balance: Static Sitting: Normal Dynamic Sitting: Normal Static Standing: Fair Dynamic Standing: Fair Special Tests: Mobility Limitations Standardized Measure [facility] AM-PAC 6 clicks Basic Mobility Inpatient Short Form: Raw Score: 22 CMS Score: 21% deficit Informed Consent/Education: Patient was instructed in purpose of PT consult and plan of care. Agreeable to proceed with established PT POC to achieve personal goals. Assessment: Patient was able to tolerate in-room ambulation with NWB on the L LE requiring only stand by assist with nor report of increased pain in the surgical site. Patient presented with clinical signs and symptoms consistent with current/admitting diagnoses that have resulted to mobility limitations, gait instability, generalized weakness, and overall ADL decline as demonstrated by the following impairment level findings: 1. Decreased strength to L ankle major muscle groups 2. Impaired standing balance 3. Impaired activity tolerance 4. Limitation of joint range of motion in L ankle Impairments are contributing to the following functional limitations: 1. Difficulty with ambulation without assistive device 2. Increased completion time for mobility ADL performance 3. Increased risk for falls 4. Difficulty with managing steps alone safely Patient is assessed as a 40814 low complexity based on the following: History: 45-year-old female with past medical history as indicated above Examination: Demonstrable impairment in strength, balance, and mobility level with underlying impairments and functional limitations as exhibited above as well as deficit score of 21% utilizing the [facility] Mobility Inpatient Short Form Presentation: Evolving Decision Makin low complexity Goals: Goals X1 week 1. Supine-Sit independent 2. Sit-Supine independent 3. Sit-Stand independent 4. Stand-Sit independent with FWW 5. Bed-Chair independent with FWW 6. Chair-Bed independent with FWW 7. Independent gait on level surface with use of FWW and NWB through L LE for at least 75 feet feet without report of pain nor dyspnea 8. Independent stair negotiation while holding onto B rails for at least 12 steps without report of pain nor dyspnea 9. Independent with home exercise program 10. Good static and dynamic standing balance/tolerance Plan of Care/Treatment Plan: 1-2x/day, 7 days/week x 1 week. Plan of care has been reviewed with the PRESS SET UP PERSON providing the service under Physical Therapy direction. Initiate Physical Therapy intervention for pain management as needed, strengthening, bed mobility, transfers, gait, stairs, balance training, and use of assistive device. DISCHARGE RECOMMENDATIONS: PT for functional mobility training inside home environement using appropriate AD. TREATMENT CODE/TIME: 27719 x 20 minutes for 1 unit (10:08-10:28). Thank you for the opportunity to participate in the care of this patient. Ember Francis PT, DPT, CLT [facility] [place], [place]
[2025-09-20] MEDS: Buprenorphine 2 MG SUBLINGUAL TABLET SL (12:04)
--- NOTE | 2025-09-20 13:51 | PGE_ITS ---
Date of Service Date of service: 09/20/25 Time of Service: 13:51 Assessment and Plan Assessment and plan (1) Osteomyelitis of great toe of left foot: Status: Acute Assessment and plan: S/p amputation. Bone cultures pending. Will continue pip/tazo to cover pseudomonas and vancomycin to cover MRSA with cultures pending, then narrow. She was upset that she will need prolonged antibiotics. She would like to do outpatient therapy as soon as it is safe. Will d/w ID after cultures return. She will likely need 2 weeks of IV antibiotics, then oral. Non-weight bearing with boot, PT ordered. For pain, given relatively low chronic buprenorphine dose can take additional 2mg doses prn to treat acute pain, no change today (2) Diabetic ulcer of left great toe: Status: Acute Assessment and plan: wound care per podiatry, has vac dressing off, but per kaitlin should heal without (3) Benign essential hypertension: Status: Acute Assessment and plan: continue outpatient therapy. She is on lisinopril, s/p hysterectomy so no risk. (4) Bipolar disorder in remission: Status: Acute Assessment and plan: Continue outpatient therapy, appears stable, monitor mood. (5) Opioid dependence on agonist therapy: Assessment and plan: In stable remission, has been on prolonged taper of Suboxone. Continue her chornic 4mg/1mg dose, Can use additional 2mg buprenorphine doses as above for acute pain. (6) Type 2 diabetes, controlled, with neuropathy: Assessment and plan: On just tirzepatide, which she took 09/18. Repeat A1c 6.1% reflecting good control. ISS low prn. (7) Blood loss: Status: Acute Assessment and plan: Surgical, now hemostatic. She does have a baseline anemia as well. Repeat CBC showed only mild drop. Iron is slightly low, b12 okay, can treat with oral iron. Subjective Subjective Patient reports: no new complaints, tolerating a regular diet and voiding w/o difficulty; denies diarrhea, vomiting, shortness of breath or fever Interval history since last seen: events: dressing changed by Kaitlin this morning, vacuum removed Feels well Exam Narrative Exam Narrative: GEN: Alert and oriented, NAD LUNGS: CTAB with normal effort CV: RRR with no murmurs, gallops, or rubs. ABD: active bowel sounds, soft, nontender and nondistended. No masses. EXT: no cyanosis, clubbing, or edema. Left foot bandaged, see podiatry notes re: wound. Cap refill <2 sec distal toes MSK: No joint redness or swelling Objective Last Vital Signs Temp 35.6 C L 09/20/25 07:38 Pulse 75 09/20/25 07:38 Resp 18 09/20/25 07:38 BP 108/63 09/20/25 07:38 Pulse Ox 97 09/20/25 07:38 Laboratory Results - last 24 hr 09/19/25 09/20/25 16:30 06:08 WBC 8.59 RBC 2.87 L Hgb 9.6 L 8.9 L Hct 29.7 L 27.1 L MCV 94 MCH 31.0 MCHC 32.8 RDW 12.3 Plt Count 365 MPV 9.9 Hemoglobin A1c 6.1 H Iron 38 L TIBC 222 L Transferrin % Sat 17 Vitamin B12 393 Random Vancomycin 32.3 Time Spent with Patient Time Spent with Patient: 35-49 minutes Time was spent: preparing to see the patient(eg.review tests), obtaining and/or reviewing separately otained hiistory, ordering medications,tests, procedures, referring, communicating with other health palliative care coordinator, indepentently interpreting results, counseling the patient and care coordination
--- NOTE | 2025-09-20 14:37 | CHAPLAIN ---
Kimberly was sitting up in bed when I visited. I explained my role and offered support. Kimberly said she's ok, and was not interested in further conversation.
--- NOTE | 2025-09-20 17:02 | PDOC.CMIN ---
Date of service: 09/20/25 Time of Service: 17:03 Care Management Initial Assmt Initial Assessment Reason for Hospitalization: osteomyelitis Functional Status/Living Situation Patient Presentation: Kimberly was sitting up in bed when CM met with her. She was pleasant and engaged in conversation. She reported that she went to her first podiatry appointment yesterday, and was sent from that appt to the OR to have her toe amputated, and was admitted after for IV antibiotics. She stated that the experience was overwhelming, but she has had some time to process it since, and feels that everything went as well as it could. She stated that per MD, she will likely discharge home tomorrow. Per provider, blood cultures are pending, which will help determine her antibiotic course. Kimberly reported that she lives in [place] with her and two sons, who are all very supportive. She does not work, but is independent at baseline. She worked with PT, which she reported went well. PT recommended HH PT; Kimberly stated that she will be able to go to outpatient PT, but she is ok with either HH vs O/P. She stated that she does not anticipate the need for any additional community supports at this time. CM will continue to follow. Town of Residence: [place] Resides with: Spouse Significant Other/Family: Local Natural Supports: spouse, Yaniv Two sons Employment Status: Unemployed Instrumental Activities of Daily Living (ADLs): Independent Medications Medication Management: No Issues/Barriers identified Physical Functioning/Mobility Assistive Device: knee scooter Advance Directives Advance Directives: Do you have an Advance Directive: N Today, 04:28 AD On File at [facility]: N 09/13/25, 11:19 Date Asked 09/19/25 09/19/25, 11:11 AD Date Reviewed COLST On File at [facility] COLST Date Scanned Code Status Resuscitation Status Full Code Insurance Coverage/Financial Issues Insurance: [facility] Care Team Visit Care Team Role Provider Type Angel Wu MD Primary Care Provider NON-[facility] STAFF PHYSICIAN Nhung Madrigal, DPM Other Providers DPM [facility] STAFF PHYSICIAN Sienna Russell Other Providers OTHER Jeet Beltran DPM Other Providers KYLE [facility] STAFF PHYSICIAN Yaniv Long MD Emergency Provider [facility] STAFF PHYSICIAN Yaniv Blake Admit Provider [facility] STAFF PHYSICIAN Attending Provider Discharge Potential Discharge Needs: Surgical F/U Appt Anticipated Barriers to Discharge: None Identified Patient/Family Education Needs: Review discharge instructions, discuss Ask Me Three Transportation: Private vehicle Plan: Anticipate Kimberly will return home with no services; she will likely have O/P PT. Her will drive her home via private vehicle. She will follow up with podiatry and her discharge plan of care. CM will continue to follow. Social Determinants of Health Screening Social Determinants of health last assessed in clinic: 09/20/25 Will the Patient Participate in the Screening?: Yes Do you worry about having a steady place to live?: no Problems where you live: no known problems In the past 12 months, have you had to go without electric, gas, oil or water in your home?: no 1. Within the past 12 months, we worried whether our food would run out before we got money to buy more.: Never true 2. Within the past 12 months, the food we bought just didn't last and we didn't have money to get more.: Never true Has lack of transportation kept you from medical appointments or from doing things needed for daily living?: no Has anyone in your life made you feel unsafe or unsupported?: no How hard is it for you to pay for the very basics like food, housing, medical care, and heating? Would you say it is:: Not hard at all Do you want help finding or keeping work or a job?: I do not need or want help If for any reason you need help with day-to-day activities such as bathing, preparing meals, shopping, managing finances, etc., do you get the help you need?: I get all the help I need How often do you feel lonely or isolated from those around you?: Never Do you speak a language other than Chinese at home?: No Does the patient want assistance with any of the above?: No PFSH All Active Problems (Updated 09/19/25 @ 18:10 by Yaniv Blake) Blood loss (Acute) Diabetic ulcer of left great toe (Acute) Cellulitis (Acute) Osteomyelitis of great toe of left foot (Acute) Ulcer of left foot with necrosis of bone (Acute) Uncontrolled diabetes mellitus with hyperglycemia (Acute) Restless leg syndrome (Acute) Morbid obesity (Acute) Panic disorder (Acute) MCC current use of therapeutic drug (Acute) Left hand pain (Acute) Knee pain (Acute) Hyperlipidemia (Acute) GERD (gastroesophageal reflux disease) (Chronic) Dystrophic nail (Acute) Depressive disorder (Chronic) Carpal tunnel syndrome (Acute) Bipolar disorder in remission (Acute) Benign essential hypertension (Acute) Allergic rhinitis (Acute) Trigger finger of left hand (Acute) Medical History (Updated 09/19/25 @ 18:10 by Yaniv Blake) Type 2 diabetes, controlled, with neuropathy Opioid dependence on agonist therapy Refractory migraine without aura Ureteric stone Toe ulcer, right Tension type headache Counseled by counselor Chronic ulcer of right foot Chronic ulcer of toe of left foot Surgical History H/O adenoidectomy Previous section History of hysteroscopy Social History (Updated 09/19/25 @ 17:55 by Yaniv Blake) Smoking/Tobacco Use Status: Current every day Tobacco Type: e-cigarettes Smokeless tobacco user: other Counseling given: provider counseling, support medications and counseling >3 minutes Smoking risk assessment performed?: Yes Alcohol Intake: never Drug use: Never Housing: house Additional Social history: Lives with her long-term partner and 15 and 23 yo children in [place]. Not working currently
[2025-09-20] MEDS: Buprenorphine/Naloxone 4 mg/1 mg FILM 1 EACH SL (17:36)
[2025-09-20 19:38] VITALS: BP 112/74; PULSE 85; RESP 18; TEMP 36.8; O2SAT 97
[2025-09-20] MEDS: Venlafaxine 75 MG CAPCR 225 MG PO (19:40)
[2025-09-20] MEDS: Rosuvastatin 20 MG TAB PO (19:40)
[2025-09-20] MEDS: Omega-3 Fatty Acids 1000 MG CAP PO (19:40)
[2025-09-20] MEDS: Nicotine 4 MG GUM CH (19:40)
[2025-09-20] MEDS: buPROPion-XL 150 MG TABCR 300 MG PO (19:41)
[2025-09-20] MEDS: lamoTRIgine 100 MG TAB 250 MG PO (19:41)
[2025-09-20] MEDS: Dexlansoprazole 30 MG CAP PO (19:41)
[2025-09-20] MEDS: Lisinopril 20 MG TAB PO (19:41)
[2025-09-21] MEDS: PIPERACILLIN/TAZO 3.375 GM in Normal Saline 50 ML IVPB ×4 (00:48→17:08)
[2025-09-21] MEDS: Normal Saline Flush 10 ML SYR IVP ×5 (00:48→20:35)
[2025-09-21] MEDS: VANCOMYCIN/WATER (PEG) 1.5 GM/300 ML BAG IVPB ×2 (01:32→14:27)
[2025-09-21 07:34] VITALS: BP 119/70; PULSE 79; RESP 17; TEMP 36.1; O2SAT 96
[2025-09-21] MEDS: Buprenorphine/Naloxone 4 mg/1 mg FILM 1 EACH SL (08:39)
[2025-09-21] MEDS: Enoxaparin 40 MG/0.4 ML SYR SC (08:39)
[2025-09-21] MEDS: Docusate Sodium 100 MG/10 ML CUP PO (08:41)
[2025-09-21] MEDS: Ferrous Sulfate 325 MG TAB PO (08:41)
--- NOTE | 2025-09-21 09:51 | PTTR_ITS ---
PT Notes Visit Reasons: Osteomyelitis Physical Therapy Inpatient Treatment Note Date: 09/21/2025 Referring Doctor: Yaniv Blake MD PT Orders: PT CONSULT: Eval for Assistive Device, L first toe amputation, non- weight bearing Precautions: Fall. Standard. NWB through L LE per Dr Madrigal and Dr. Blake Subjective: Wanted to see how she would do with a pair of crutches today. No report of pain throughout session. Good about observing NWB. Objective: General Observation: Resting in bed. Surgical dressing on L foot. IV access through R UE. Mental Status: Alert and oriented as to person, place, time, and purpose. Able to pay attention, focus, and respond appropriately. Pain: None reported Vital Signs: Closely monitored by nursing staff Bed Mobility/Transfers: Minimal cueing provided for use of B hands as needed for support, movement sequence, AD management, and posture to reduce fall risk and minimize pain report Rolling independent Supine to sit independent Sit to supine independent Sit to stand supervision Stand to sit supervision Bed to reclining chair supervision Gait: 10 feet with bilateral axillary crutches and patient verbalized not feeling stable with it. 50 feet with FWW with stand by assist only. Verbalized being mildly lightheaded, resolved with seated rest. NWB through the L LE. Post-op shoe on L foot. Minimal cues given for AD management and efficient weight distribution. No report of increased pain. Stairs: Kimberly performed stair negotiation up three 4-inch steps while pushing down on B rails and NWB through L LE with conatct guard assist and stand by assist of PT Lorri and DPTS Bharat. Minimal cues only for limb weight distribution good R LE and trunk as well R rail. Balance: Static Sitting: Normal Dynamic Sitting: Normal Static Standing: Fair Dynamic Standing: Fair Assessment: Patient was able to learn safe and correct technique for stair negotiation and use of FWW and HECTOR on level surface. She prefers the FWW over the HECTOR as it felt much more stable considering NWB precaution through L LE. Plan of Care/Treatment Plan: 1-2x/day, 7 days/week x 1 week. Plan of care has been reviewed with the BRAKE REPAIR MECHANIC providing the service under Physical Therapy direction. Initiate Physical Therapy intervention for pain management as needed, strengthening, bed mobility, transfers, gait, stairs, balance training, and use of assistive device. DISCHARGE RECOMMENDATIONS: PT for functional mobility training inside home environment using appropriate AD. TREATMENT CODE/TIME: 70409 x 42 minutes for 3 units (09:51-10:33).
--- NOTE | 2025-09-21 11:55 | W.PM.PROGNOT ---
Date of Service Date of service: 09/21/25 Time of Service: 11:56 Assessment and Plan Assessment and plan (1) Osteomyelitis of great toe of left foot: Status: Acute Assessment and plan: -S/p amputation on 09/19 -bone cultures pending, prelim growing GPCs -continue pip/tazo to cover pseudomonas and vancomycin to cover MRSA with cultures pending, then narrow. - Patient is status post amputation and source control, IV antibiotic therapy will not be required, will be able to transition to p.o. antibiotic regimen for an additional week (2) Diabetic ulcer of left great toe: Status: Acute Assessment and plan: -wound care per podiatry (3) Benign essential hypertension: Status: Acute Assessment and plan: - Continue lisinopril (4) Bipolar disorder in remission: Status: Acute Assessment and plan: -Continue outpatient therapy (5) Opioid dependence on agonist therapy: Assessment and plan: -In stable remission, has been on prolonged taper of Suboxone. -Continue her chornic 4mg/1mg dose, Can use additional 2mg buprenorphine doses as above for acute pain. (6) Type 2 diabetes, controlled, with neuropathy: Assessment and plan: -On just tirzepatide, which she took 09/18. - Repeat A1c 6.1% reflecting good control. -ISS low prn. (7) Blood loss: Status: Acute Assessment and plan: Surgical, now hemostatic. -She does have a baseline anemia as well. Subjective Subjective Interval history since last seen: Patient states that she is doing well and understands the plan to continue current IV antibiotics until final wound cultures are resulted. Exam Narrative Exam Narrative: well appearing female sitting up on the edge of the bed in no acute distress, AOx4, heart RRR, lungs CTAB, abdomen soft, non-tender, non-distended, left foot wrapped in bandage without surrounding erythema or drainage Objective Last Vital Signs Temp 97.0 F L 09/21/25 07:34 Pulse 79 09/21/25 07:34 Resp 17 09/21/25 07:34 BP 119/70 09/21/25 07:34 Pulse Ox 96 09/21/25 07:34 Time Spent with Patient Time Spent with Patient: >50 minutes Time was spent: preparing to see the patient(eg.review tests), obtaining and/or reviewing separately otained hiistory, ordering medications,tests, procedures, referring, communicating with other health career and guidance counselor, indepentently interpreting results, counseling the patient and care coordination
--- NOTE | 2025-09-21 12:21 | W.PM.PROGNOT ---
Date of Service Date of service: 09/21/25 Time of Service: 12:22 Assessment and Plan Assessment and plan (1) Diabetic ulcer of left great toe: Status: Acute (2) Cellulitis: Status: Acute (3) Osteomyelitis of great toe of left foot: Status: Acute (4) Ulcer of left foot with necrosis of bone: Status: Acute (5) Uncontrolled diabetes mellitus with hyperglycemia: Status: Acute (6) Blood loss: Status: Acute (7) Type 2 diabetes, controlled, with neuropathy: Assessment and plan: Patient reports blunt injury to the left foot overnight due to the foot kicking her other leg reported pain. Pain is now controlled. Heavy sanguinous drainage noted on the inner layer of dressings mild erythema concerning for recurring infection versus trauma. I recommend continued IV antibiotics. No active pulsatile or oozing bleeding noted upon examination. I have reached out to infectious disease and am awaiting a phone call from them. He will need antibiotics adjusted most likely prior to discharge. For now, we will leave her dressings clean, dry and intact. These were changed today with Xeroform, 4 x 4, Kerlix and an Jeffrey wrap. Nursing to continue dressing changes should there be strikethrough. Patient to follow-up outpatient in 1 week. No further surgical intervention is planned or indicated at this time Subjective Subjective Interval history since last seen: Patient was seen bedside resting comfortably. Offers no acute complaints however she states she accidentally kicked the foot which resulted in severe pain however. Exam Extrem Other: Left lower extremity physical exam Skin: Dressing noted to be clean, however, sanguinous drainage noted to the inner layer of the dressing to the distal medialmost tip of the incision site area. There is some surrounding erythema noted along the incision site however, no crepitus no bogginess no fluctuance no purulence no malodor Vascular: Skin appears well-perfused CFT is brisk no sign of gangrene or cyanosis to the skin edges. MSK: Pain reported to the left foot. Neuro: Light touch absent Objective Last Vital Signs Temp 97.0 F L 09/21/25 07:34 Pulse 79 09/21/25 07:34 Resp 17 09/21/25 07:34 BP 119/70 09/21/25 07:34 Pulse Ox 96 09/21/25 07:34 Time Spent with Patient Time Spent with Patient: 25-34 minutes Time was spent: preparing to see the patient(eg.review tests), obtaining and/or reviewing separately otained hiistory, ordering medications,tests, procedures, referring, communicating with other health progressive care nurse, indepentently interpreting results, counseling the patient, care coordination and other
[2025-09-21] MEDS: Nicotine 4 MG GUM CH (12:25)
--- NOTE | 2025-09-21 12:52 | CMPROGNOTE_ITS ---
Date of service: 09/21/25 Time of Service: 12:52 Care Management Progress Note Progress Note Text Progress Note Text: Kimberly was sitting up in bed when CM met with her. Per report, her cultures are pending, which will guide the course of her antibiotic treatment. Kimberly expressed a strong desire to return home and stated that if IV antibiotics are required, she would prefer to receive them through outpatient infusion, if appropriate. CM will continue to follow. Discharge Potential Discharge Needs: Surgical F/U Appt Anticipated Barriers to Discharge: None Identified Patient/Family Education Needs: Review discharge instructions, discuss Ask Me Three Transportation: Private vehicle Plan: Anticipate Kimberly will return home with new antibiotic regime; she will likely have O/P PT. Her will drive her home via private vehicle. She will follow up with podiatry and her discharge plan of care. CM will continue to follow. Social Determinants of Health Screening Social Determinants of health last assessed in clinic: 09/21/25 Will the Patient Participate in the Screening?: Yes Do you worry about having a steady place to live?: no Problems where you live: no known problems In the past 12 months, have you had to go without electric, gas, oil or water in your home?: no 1. Within the past 12 months, we worried whether our food would run out before we got money to buy more.: Don't know/refused 2. Within the past 12 months, the food we bought just didn't last and we didn't have money to get more.: Don't know/refused Has lack of transportation kept you from medical appointments or from doing things needed for daily living?: no Has anyone in your life made you feel unsafe or unsupported?: no How hard is it for you to pay for the very basics like food, housing, medical care, and heating? Would you say it is:: Not hard at all Do you want help finding or keeping work or a job?: I do not need or want help If for any reason you need help with day-to-day activities such as bathing, preparing meals, shopping, managing finances, etc., do you get the help you need?: I get all the help I need How often do you feel lonely or isolated from those around you?: Never Do you speak a language other than Cameroonian at home?: No Does the patient want assistance with any of the above?: No
[2025-09-21 13:40] LABS: Vancomycin, Trough 10.9 ug/mL (5.0-10.0)
[2025-09-21] MEDS: Acetaminophen 325 MG TAB 650 MG PO (14:25)
[2025-09-21] MEDS: MORPHine 2 MG/ML SYR IVP ×2 (14:25→20:35)
--- NOTE | 2025-09-21 15:26 | PTTR_ITS ---
PT Notes Visit Reasons: Osteomyelitis Date: 09/21/2025 PRECAUTIONS: Fall, Standard, Activity as tolerated. SUBJECTIVE: Pt in bed when approached for therapy this afternoon, pt agreed to participating with therapy intervention. OBJECTIVE: IV line on left antecubital, bandage on left foot ? PAIN: none as of the moment VITALS: Monitored by nursing Therapeutic Activities 98374: Direct one-on-one instruction in dynamic activities to improve functional performance. ?? BED MOBILITY/TRANSFERS? Rolling L/R: independent Supine-sit: ?independent? Sit-supine: ? independent? Provided skilled cues and instruction on performance and technique throughout. ? Therapeutic Exercises 42163: Direct one-on-one instruction in therapeutic exercises to develop strength, endurance, range of motion and flexibility. Exercises Seated weight shifting L/R, FWD/BWD Seated LAQ 62z9tin Seated SAQ 59x2rmw Seated internal hip rotation 66v9ncs Seated external hip rotation 05e8zfj Seated ankle dorsi/plantar flexion 92i3afr Seated ankle inversion/eversion 24e2yos Supine SLR 84u4mad Supine single knee to chest 08a7lyv Supine double kne to chest 88k7hcy Hooklying trunk rotation 19n9via Supine clamshells 01v3ssa Supine lateral hip fall outs 91g3gmi Supine bridge 56t7gej Supine glute and quad sets 59e8pxs sidelying clamshell 39w7ysv Sidelying hip abduction 52k4feg Supine bicycle 72k5kzl Provided skilled instruction in proper exercise performance Provided skilled manual cues to facilitate proper muscle recruitment and/or form: ASSESSMENT:?Pt tolerated activity well, pt cue for placing weight more on right foot during bridging. PLAN: Continue with balance training, global strengthening and general conditioning for improved safety, mobility and activity tolerance until pt is ready for DC. TREATMENT CODE/TIME: 66062u9, 61199x6 25mins (3:00-3:25pm)
--- NOTE | 2025-09-21 15:26 | PT.INTREAT ---
PT Notes Visit Reasons: Osteomyelitis Date: 09/21/2025 PRECAUTIONS: Fall, Standard, Activity as tolerated. SUBJECTIVE: Pt in bed when approached for therapy this afternoon, pt agreed to participating with therapy intervention. OBJECTIVE: IV line on left antecubital, bandage on left foot ? PAIN: none as of the moment VITALS: Monitored by nursing Therapeutic Activities 25704: Direct one-on-one instruction in dynamic activities to improve functional performance. ?? BED MOBILITY/TRANSFERS? Rolling L/R: independent Supine-sit: ?independent? Sit-supine: ? independent? Provided skilled cues and instruction on performance and technique throughout. ? Therapeutic Exercises 61791: Direct one-on-one instruction in therapeutic exercises to develop strength, endurance, range of motion and flexibility. Exercises Seated weight shifting L/R, FWD/BWD Seated LAQ 38o1pkp Seated SAQ 52r0cpf Seated internal hip rotation 51a5mvn Seated external hip rotation 58w9wwe Seated ankle dorsi/plantar flexion 58h5dkp Seated ankle inversion/eversion 93o2fpi Supine SLR 78r8suh Supine single knee to chest 33v4uln Supine double kne to chest 21a2hqb Hooklying trunk rotation 99j8rxf Supine clamshells 61t3rfl Supine lateral hip fall outs 45o6uxf Supine bridge 43n0rra Supine glute and quad sets 01b8bed sidelying clamshell 29g4cll Sidelying hip abduction 21x5ctf Supine bicycle 98z0lcc Provided skilled instruction in proper exercise performance Provided skilled manual cues to facilitate proper muscle recruitment and/or form: ASSESSMENT:?Pt tolerated activity well, pt cue for placing weight more on right foot during bridging. PLAN: Continue with balance training, global strengthening and general conditioning for improved safety, mobility and activity tolerance until pt is ready for DC. TREATMENT CODE/TIME: 14098p4, 09377u2 25mins (3:00-3:25pm)
[2025-09-21] MEDS: Dexlansoprazole 30 MG CAP PO (20:38)
[2025-09-21] MEDS: Omega-3 Fatty Acids 1000 MG CAP PO (20:38)
[2025-09-21] MEDS: lamoTRIgine 100 MG TAB 250 MG PO (20:39)
[2025-09-21] MEDS: Venlafaxine 75 MG CAPCR 225 MG PO (20:39)
[2025-09-21] MEDS: buPROPion-XL 150 MG TABCR 300 MG PO (20:40)
[2025-09-21] MEDS: Rosuvastatin 20 MG TAB PO (20:40)
[2025-09-21] MEDS: Lisinopril 20 MG TAB PO (20:40)
[2025-09-22] MEDS: PIPERACILLIN/TAZO 3.375 GM in Normal Saline 50 ML IVPB ×2 (00:26→06:50)
[2025-09-22] MEDS: Normal Saline Flush 10 ML SYR IVP ×3 (00:27→08:44)
[2025-09-22] MEDS: VANCOMYCIN/WATER (PEG) 1.5 GM/300 ML BAG IVPB (01:15)
[2025-09-22 07:27] VITALS: BP 108/67; PULSE 69; RESP 16; TEMP 36.1; O2SAT 98
[2025-09-22] MEDS: Enoxaparin 40 MG/0.4 ML SYR SC (08:42)
[2025-09-22] MEDS: Buprenorphine/Naloxone 4 mg/1 mg FILM 1 EACH SL (08:43)
[2025-09-22] MEDS: Ferrous Sulfate 325 MG TAB PO (08:44)
[2025-09-22] MEDS: Docusate Sodium 100 MG CAP PO (08:44)
--- NOTE | 2025-09-22 09:10 | PT.INTREAT ---
PT Notes Visit Reasons: Osteomyelitis Physical Therapy Inpatient Treatment Note Date: 09/22/2025 Referring Doctor: Yaniv Blake MD PT Orders: PT CONSULT: Eval for Assistive Device, L first toe amputation, non-weight bearing Precautions: Fall. Standard. NWB through L LE per Dr Madrigal and Dr. Blake Subjective: No report of pain throughout session. Good about observing NWB on L LE with mobility performance. Hoping she could go home today. Objective: General Observation: Resting in bed. Surgical dressing on L foot. IV access through R UE. Mental Status: Alert and oriented as to person, place, time, and purpose. Able to pay attention, focus, and respond appropriately. Pain: reported minimal soreness with ankle Df exercise Vital Signs: Closely monitored by nursing staff Bed Mobility/Transfers: Minimal cueing provided for use of B hands as needed for support, movement sequence, AD management, and posture to reduce fall risk and minimize pain report Rolling independent Supine to sit independent Sit to supine independent Sit to stand independent Stand to sit independent Bed to reclining chair independent Gait: 100 feet with FWW, modified independent. Good about NWB through the L LE. Post-op shoe on L foot. Minimal cues given for AD management and efficient weight distribution. No report of increased pain. Stairs: Patient verbalized that she already feels confident about the stairs as she will have her 's assistance at home to get into the house. Balance: Static Sitting: Normal Dynamic Sitting: Normal Static Standing: Fair Dynamic Standing: Fair Assessment: Modified independent with FWW inside room. HEP copy provided and reviewed today. FWW fitted and issued. THERA EX: Reviewed HEP below and provided written copy to patient Access Code: [email or web address] URL: [email or web address] Date: 09/22/2025 Prepared by: Ember Francis Exercises - Supine Active Straight Leg Raise - 1 x daily - 7 x weekly - 1 sets - 10 reps - 5 hold - Supine Single Knee to Double Knee to Chest Stretch - 1 x daily - 7 x weekly - 1 sets - 10 reps - 5 hold - Supine Double Knee to Chest - 1 x daily - 7 x weekly - 1 sets - 10 reps - 5 hold - Supine Lower Trunk Rotation - 1 x daily - 7 x weekly - 1 sets - 10 reps - 5 hold - Bent Knee Fallouts - 1 x daily - 7 x weekly - 1 sets - 10 reps - 5 hold - Supine Bridge - 1 x daily - 7 x weekly - 1 sets - 10 reps - 5 hold - Supine Gluteal Sets - 1 x daily - 7 x weekly - 1 sets - 10 reps - 5 hold - Supine Quadricep Sets - 1 x daily - 7 x weekly - 1 sets - 10 reps - 5 hold - Clamshell - 1 x daily - 7 x weekly - 1 sets - 10 reps - 5 hold - Sidelying Hip Abduction - 1 x daily - 7 x weekly - 1 sets - 10 reps - 5 hold - Supine Bicycles - 1 x daily - 7 x weekly - 1 sets - 10 reps - 5 hold - Seated Long Arc Quad with Hip Adduction - 1 x daily - 7 x weekly - 1 sets - 10 reps - 5 hold - Seated Hip Internal Rotation AROM - 1 x daily - 7 x weekly - 1 sets - 10 reps - 5 hold - Seated Hip External Rotation AROM - 1 x daily - 7 x weekly - 1 sets - 10 reps - 5 hold - Seated Heel Toe Raises - 1 x daily - 7 x weekly - 1 sets - 10 reps - 5 hold Plan of Care/Treatment Plan: Discharge from PT as of today. DISCHARGE RECOMMENDATIONS: PT for functional mobility training inside home environment using appropriate AD. TREATMENT CODE/TIME: 91612 x 25 minutes for 2 units, 26708 x 13 minutes for 1 unit (08:46-09:24).
--- NOTE | 2025-09-22 09:51 | DSE_ITS ---
Date of service: 09/22/25 Time of Service: 09:51 DS: Diagnosis Discharge Diagnosis (1) Diabetic ulcer of left great toe: Status: Acute (2) Cellulitis: Status: Acute (3) Osteomyelitis of great toe of left foot: Status: Acute (4) Ulcer of left foot with necrosis of bone: Status: Acute (5) Uncontrolled diabetes mellitus with hyperglycemia: Status: Acute (6) Blood loss: Status: Acute (7) Type 2 diabetes, controlled, with neuropathy: Discharge Plan Disposition Patient Disposition: Home Condition: Good Discharge Details Reason For Visit: Osteomyelitis Admit Date/Time: 09/19/25 15:36 Admit Provider: Yaniv Blake Attending Provider: Yaniv Blake Primary Care Provider: Angel Wu Hospital Course Hospital Course: Patient initially presented with signs and symptoms of an infected left great toe concerning for osteomyelitis for which she had amputation performed on 09/19/2025. Patient was continued on IV antibiotics, and bone biopsy grew Enterococcus sensitive to ampicillin. Given that source control was achieved, determined the patient could be discharged home with additional 5 days of p.o. ampicillin. Patient will also have close follow-up with podiatry as outpatient. Home Meds and New Rx's Prescriptions: New ampicillin 500 mg Capsule 500 mg PO QID 5 Days Qty: 20 0RF Continued venlafaxine 75 mg capsule,extended release 24hr 75 mg PO HS lisinopril 20 mg tablet 20 mg PO HS venlafaxine 150 mg capsule,extended release 24hr 150 mg PO HS bupropion HCl 300 mg tablet extended release 24 hr 300 mg PO HS dexlansoprazole [Dexilant] 30 mg capsule,biphase delayed releas 30 mg PO HS buprenorphine-naloxone [Suboxone] 4-1 mg film 1 film buccal Q24H Rx Instructions: place 1 strip/tab under (each) side of tongue Mounjaro 15 mg/0.5 mL pen injector 15 mg subcut QWEEK lamotrigine 100 mg tablet 250 mg PO HS omega 4-onp-kdg-fish oil 300 mg (120 mg- 180mg)-1,000 mg capsule 1 cap PO DAILY Patient Comments: TAKE ONE CAPSULE BY MOUTH EVERY DAY rosuvastatin 20 mg tablet 20 mg PO DAILY Patient Comments: TAKE ONE TABLET BY MOUTH EVERY DAY Discharge Instructions Stand Alone Forms: Portal Information Activity:: Activity as Tolerated Equipment/Supplies:: Blood Glucose Monitor Diet:: As Tolerated Discharge Orders Discharge Orders: Discharge Order (Routine); Ordered 09/22/25 Ordered By: Andrea Cheng DS: Summary Time Spent with Patient providing and/or coordinating discharge services: Greater than 30 minutes Status at Discharge Functional status at discharge: independent ambulation Overall status at discharge: patient is back to baseline Mental Status: mental status grossly normal Speech and Movement: speech and movement normal Mood: congruent mood Affect: normal affect Exam Narrative Exam Narrative: well appearing female sitting up on the edge of the bed in no acute distress, AOx4, heart RRR, lungs CTAB, abdomen soft, non-tender, non-distended, left foot wrapped in bandage without surrounding erythema or drainage Psych Mental Status: mental status grossly normal Speech and Movement: speech and movement normal Mood: congruent mood Affect: normal affect DS: Data Vitals/I&O Vitals and I&O: Vital Signs Temperature 97.0 F L 09/22/25 07:27 Temperature Source Temporal Artery Scan 09/22/25 07:27 Pulse 69 09/22/25 07:27 Pulse 64 09/19/25 15:41 Respiratory Rate 16 09/22/25 07:27 Respiratory Effort Normal 09/19/25 16:15 Respiratory Depth Normal 09/19/25 16:15 Respiratory Pattern Tachypnea 09/19/25 16:15 Blood Pressure 108/67 09/22/25 07:27 Blood Pressure Mean 80 09/22/25 07:27 Blood Pressure Position Sitting 09/19/25 10:25 Pulse Oximetry 98 09/22/25 07:27 Respiratory End-tidal CO2 37 09/19/25 15:41 Oxygen Delivery Method Room Air 09/22/25 07:27 Oxygen Flow Rate 0 09/22/25 07:27 Pain Level 2 09/22/25 07:27 Intake & Output 09/21/25 09/22/25 09/22/25 17:59 05:59 17:59 Intake Total 1170 / 1170 1130 / 2300 100 / 100 Balance 1170 / 1170 1130 / 2300 100 / 100 Weight 206 lb 5.643 oz Intake: IV 450 / 450 350 / 800 100 / 100 Oral 720 / 720 780 / 1500 Other: Urine Color Yellow Urine Odor Normal Comment void x 1 Per pt she voided Data Completed and Pending Pending Labs at Discharge: 1109/19/25 09/20/25 10:49 16:30 06:08 WBC 9.16 8.59 RBC 3.67 L 2.87 L Hgb 10.9 L 9.6 L 8.9 L Hct 34.0 L 29.7 L 27.1 L MCV 93 94 MCH 29.7 31.0 MCHC 32.1 32.8 RDW 12.4 12.3 Plt Count 457 H 365 MPV 9.8 9.9 Immature Gran % 0.4 Neutrophils % 58.4 Lymphocytes % 33.6 Monocytes % 4.6 Eosinophils % 2.3 Basophils % 0.7 Nucleated RBC % 0.0 Absolute Neutrophils 5.35 Absolute Lymphocytes 3.08 Absolute Monocytes 0.42 Absolute Eosinophils 0.21 Absolute Basophils 0.06 ESR 30 H Sodium 140 Potassium 3.9 Chloride 101 Carbon Dioxide 30.2 Anion Gap 8.8 BUN 13 Creatinine 0.6 Est GFR (CKD-EPI 2020) 101.03 Glucose 87 Hemoglobin A1c 6.1 H Calcium 9.3 Iron 38 L TIBC 222 L Transferrin % Sat 17 C-Reactive Protein 1.42 H Vitamin B12 393 Serum HCG, Qual Negative Vancomycin Trough Random Vancomycin 32.3 09/21/25 13:15 WBC RBC Hgb Hct MCV MCH MCHC RDW Plt Count MPV Immature Gran % Neutrophils % Lymphocytes % Monocytes % Eosinophils % Basophils % Nucleated RBC % Absolute Neutrophils Absolute Lymphocytes Absolute Monocytes Absolute Eosinophils Absolute Basophils ESR Sodium Potassium Chloride Carbon Dioxide Anion Gap BUN Creatinine Est GFR (CKD-EPI 2020) Glucose Hemoglobin A1c Calcium Iron TIBC Transferrin % Sat C-Reactive Protein Vitamin B12 Serum HCG, Qual Vancomycin Trough 10.9 H Random Vancomycin Preliminary micro results at discharge 09/19/25 13:34 Toe - Left Big Toe Anaerobic Culture - Pending 09/19/25 13:34 Toe - Left Big Toe Surgical Culture - Preliminary Enterococcus faecalis 09/19/25 11:30 Blood Blood Culture - Preliminary NO GROWTH 48 HOURS 09/19/25 10:49 Blood Blood Culture - Preliminary NO GROWTH 48 HOURS [facility] All Active Problems (Updated 09/19/25 @ 18:10 by Yaniv Blake) Blood loss (Acute) Diabetic ulcer of left great toe (Acute) Cellulitis (Acute) Osteomyelitis of great toe of left foot (Acute) Ulcer of left foot with necrosis of bone (Acute) Uncontrolled diabetes mellitus with hyperglycemia (Acute) Restless leg syndrome (Acute) Morbid obesity (Acute) Panic disorder (Acute) 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 (Acute) Left hand pain (Acute) Knee pain (Acute) Hyperlipidemia (Acute) GERD (gastroesophageal reflux disease) (Chronic) Dystrophic nail (Acute) Depressive disorder (Chronic) Carpal tunnel syndrome (Acute) Bipolar disorder in remission (Acute) Benign essential hypertension (Acute) Allergic rhinitis (Acute) Trigger finger of left hand (Acute) Medical History (Updated 09/19/25 @ 18:10 by Yaniv Blake) Type 2 diabetes, controlled, with neuropathy Opioid dependence on agonist therapy Refractory migraine without aura Ureteric stone Toe ulcer, right Tension type headache Counseled by counselor Chronic ulcer of right foot Chronic ulcer of toe of left foot Surgical History H/O adenoidectomy Previous section History of hysteroscopy Social History (Updated 09/19/25 @ 17:55 by Yaniv Blake) Smoking/Tobacco Use Status: Current every day Tobacco Type: e-cigarettes Smokeless tobacco user: other Counseling given: provider counseling, support medications and counseling >3 minutes Smoking risk assessment performed?: Yes Alcohol Intake: never Drug use: Never Housing: house Additional Social history: Lives with her long-term partner and 15 and 23 yo children in [place]. Not working currently Time Spent with Patient Time Spent with Patient: <45 minutes Time was spent: preparing to see the patient(eg.review tests), obtaining and/or reviewing separately otained hiistory, ordering medications,tests, procedures, referring, communicating with other health post acute care registered nurse, indepentently interpreting results, counseling the patient and care coordination
--- NOTE | 2025-09-22 10:19 | PDOC.CMDIS ---
Date of service: 09/22/25 Time of Service: 10:19 LACE Index Scoring Tool Questions: Length of Stay (in days): 3 Was the patient admitted via the E.D.?: Yes Comorbidities: Diabetes w/o Complication E.D. Visits: 1 Answers: Total Score: 8 Risk of Readmission: Low Risk Care Management Discharge Plan Reason for Hospitalization: Osteomyelitis Discharge Plan: Kimberly will return home with new PO antibiotic regime; she will likely have O/P PT. Her will drive her home via private vehicle. She will follow up with podiatry and her discharge plan of care. Patient/Family Education Needs: Review of discharge instruction, activity, limitation, and plan of care. Discuss ask me three.
== END 2025-09-22 11:29 | disposition home or self-care (01) | DRG 617 ==
LOC: ER 11:23 → SUR 12:41 → MS 18:22
PROVIDERS: Nurse Anesthetist, Certified Registered; Podiatrist; Admitting Provider Family Medicine; Emergency Provider Emergency Medicine; PCP Family Medicine; Responsible Provider Family Medicine; Visit Provider Family Medicine
PROC: 0Y6Q0Z0 Detachment at Left 1st Toe, Complete, Open Approach (ICD-10-PCS; CPT 28820; principal; 2025-09-19 12:30)
DX: E11.69 Type 2 diabetes mellitus with other specified complication (principal); F11.20 Opioid dependence, uncomplicated; M86.8X8 Other osteomyelitis, other site; L03.116 Cellulitis of left lower limb; E11.621 Type 2 diabetes mellitus with foot ulcer; L97.524 Non-pressure chronic ulcer of other part of left foot with necrosis of bone; K21.9 Gastro-esophageal reflux disease without esophagitis; I10 Essential (primary) hypertension; F31.70 Bipolar disorder, currently in remission, most recent episode unspecified; E11.40 Type 2 diabetes mellitus with diabetic neuropathy, unspecified; E66.01 Morbid (severe) obesity due to excess calories; Z68.34 Body mass index [BMI] 34.0-34.9, adult; L97.529 Non-pressure chronic ulcer of other part of left foot with unspecified severity; E11.65 Type 2 diabetes mellitus with hyperglycemia; Z79.899 Other long term (current) drug therapy; F41.0 Panic disorder [episodic paroxysmal anxiety]; E78.5 Hyperlipidemia, unspecified; J30.9 Allergic rhinitis, unspecified; F17.290 Nicotine dependence, other tobacco product, uncomplicated; B95.2 Enterococcus as the cause of diseases classified elsewhere; Z79.85 Long-term (current) use of injectable non-insulin antidiabetic drugs
CPT/HCPCS: 28820; 11042; 00123; 36415; 80048; 85027; 85652; 87040; 87077; 88300; 88305; 96365; 97110; 97161; 97530; 99285; J1650; 73630; 80202; 82607; 83036; 83540; 83550; 84703; 85014; 85018; 85025; 86140; 87070; 87075; 87186; 87205; 88304; 88311; 99222; 99232; 99233; 99238; J0131; J1815; J2250; J2270; J2371; J2405; J2543; J2704; J3373; J3490

== ENCOUNTER 2025-10-09 10:42 | Outpatient (REF) | payer MEDICAID, SELFPAY | END 2025-10-09 10:43 | disposition home or self-care (01) | LOC: LBN 10:42 | PROVIDERS: PCP Family Medicine; Visit Provider Podiatrist | DX: L97.529 Non-pressure chronic ulcer of other part of left foot with unspecified severity (principal); S98.112A Complete traumatic amputation of left great toe, initial encounter | CPT/HCPCS: 87077; 87070; 87075; 87186; 87205 ==

== ENCOUNTER 2025-10-09 12:01 | Day surgery (SDC) | payer MEDICAID, SELFPAY ==
[2025-10-09 12:28] VITALS: BP 118/82; PULSE 74; RESP 18; TEMP 36.3; O2SAT 100
[2025-10-09] MEDS: Lactated Ringers 1,000 ML 80 ML IV (12:49)
[2025-10-09] MEDS: ceFAZolin 3,000 MG in Normal Saline 100 ML 200 MG IV (13:03)
[2025-10-09] MEDS: Lidocaine 1% Pres-Free 30 ML VIAL (13:22)
[2025-10-09 13:32] VITALS: BP 108/72; PULSE 75; RESP 18; TEMP 36; O2SAT 100
--- NOTE | 2025-10-09 13:34 | W.PM.DSUDISC ---
Date of service: 10/09/25 Discharge Plan Disposition Patient Disposition: Home Discharge Details Attending Provider: Nhung Madrigal Primary Care Provider: Angel Wu Home Meds and New Rx's Prescriptions: No Action venlafaxine 75 mg capsule,extended release 24hr 75 mg PO HS venlafaxine 150 mg capsule,extended release 24hr 150 mg PO HS bupropion HCl 300 mg tablet extended release 24 hr 300 mg PO HS dexlansoprazole [Dexilant] 30 mg capsule,biphase delayed releas 30 mg PO HS buprenorphine-naloxone [Suboxone] 4-1 mg film 1 film buccal Q24H Rx Instructions: place 1 strip/tab under (each) side of tongue lamotrigine 100 mg tablet 250 mg PO HS lisinopril 20 mg tablet 30 mg PO HS cefadroxil 500 mg capsule 500 mg PO BID 14 Days Qty: 28 0RF atorvastatin [Lipitor] 20 mg tablet 20 mg PO DAILY bupropion HCl [Wellbutrin SR] 200 mg tablet sustained-release 12 hr 200 mg PO BID Mounjaro 7.5 mg/0.5 mL pen injector 7.5 mg subcut QWEEK mupirocin [Centany] 2 % ointment 1 applic topical TID doxycycline hyclate 100 mg tablet 100 mg PO BID omega 1-olj-vxx-fish oil 300 mg (120 mg- 180mg)-1,000 mg capsule 1 cap PO DAILY Patient Comments: TAKE ONE CAPSULE BY MOUTH EVERY DAY rosuvastatin 20 mg tablet 20 mg PO DAILY Patient Comments: TAKE ONE TABLET BY MOUTH EVERY DAY Discharge Instructions Stand Alone Forms: Portal Information Discharge Orders Discharge Orders: Discharge Order (Routine); Ordered 10/09/25 Ordered By: Nhung Madrigal DS: Diagnosis Discharge Diagnosis (1) Type 2 diabetes, controlled, with neuropathy: Status: Acute (2) Ulcer of left foot with fat layer exposed: Status: Acute (3) Amputation of left great toe: Status: Acute (4) Wound dehiscence, surgical: Status: Acute (5) Cellulitis: Status: Resolved
--- NOTE | 2025-10-09 13:35 | ROE_ITS ---
Operative Note Operative Note PRE-OP DIAGNOSIS: Wound dehiscence, left partial first ray amputation Full-thickness ulcer, left foot with fat layer exposed Cellulitis POST-OP DIAGNOSIS: same PROCEDURE: Excisional wound debridement, management of wound dehiscence, left foot SURGEON: Nhung Madrigal ANESTHESIA TYPE: Local By Surgeon (10 mL 1% lidocaine plain preop) Refer to Anesthesia Record ESTIMATED BLOOD LOSS: 5 PATHOLOGY: none sent COMPLICATIONS: None Patient was transported to: same day Patient's condition: stable Indications: 45-year-old female patient with wound dehiscence to amputation site with partial first ray amputation she was seen in office today with heavy necrotic tissue burning to the amputation site. Sutures were removed and the wound was evaluated. I attempted debridement in the office with a sterile #15 blade however all necrotic nonviable tissue was not able to be submitted effectively therefore decision was made to bring her to the OR. Patient consented to the procedure. No guarantees or warranties were made or implied. Patient was started on antibiotics. Findings: Ulcer measurements predebridement: 3.2 x 1.1 x 1.0 cm Postdebridement measurements: 1.3 x 1.6 x 1.0 cm Procedure Description: This 45-year-old female patient with a past medical history concerning for diabetes. Patient was identified in preop holding. Site was marked. Consent form was signed in chart. No complications to the procedure. Patient was brought to the operating room placed stretcher in supine position. IV antibiotics were started preprocedure. Using 10 mL of 1% lidocaine plain a local block was performed around the ulcer. Next, the left lower extremity was then scrubbed prepped and draped in the usual aseptic manner. Timeout was carried out. Using Versajet at #10 was debrided excisionally of all necrotic, nonviable tissue including subcutaneous tissue until healthy bleeding was noted. The wound was noted to be deep however without any drainage or purulence. There was some bleeding noted which was ligated and cauterized. The wound bed was then evaluated and noted to be healthy and granular. Dressings were then applied with Betadine soaked packing gauze packed into wound, 4 x 4, Kerlix and an Jeffrey wrap. The patient verbally consented for debridement of the left fourth toe ulcer whi ch was debrided excisionally with a sterile blade until healthy bleeding base was noted, necrotic friable tissue was debrided and passed from the operative field this included the subcutaneous tissue. Hemostasis achieved with pressure. Dressings applied with Betadine soaked 4 x 4, Kerlix and Jeffrey wrap. Patient tolerated the procedure well and without signs of neurovascular status intact to the right foot. Labs were ordered. Patient was prescribed antibiotics patient. This will require repeat wound debridement in the OR for possible closure of the wound appropriate at her next visit. Will plan for this. Discussed this in detail with the patient. Date of Procedure: 10/09/25
[2025-10-09 13:58] LABS: Abs Immature Grans 0.03 10^3/uL (0.0-0.06); HCT 34.1 % (36.0-46.0); HGB 11.0 g/dL (11.2-15.7); Immature Grans % 0.3 %; MCH 30.1 pg (27.0-33.0); MCHC 32.3 % (32.0-36.0); MCV 93 fL (80-95); MPV 10.7 fL (8.0-11.0); Platelet Count 320 10^3/uL (130-400); RBC 3.65 10^6/uL (3.93-5.22); RDW 13.2 % (11.7-14.6); RDW-SD 45.8 fL; WBC 9.19 10^3/uL (4.4-10.8)
[2025-10-09 14:13] LABS: ESR 10 mm/hr (0-20)
[2025-10-09 14:16] LABS: C-Reactive Protein < 0.50 mg/dL (<=0.50)
== END 2025-10-09 13:56 | disposition home or self-care (01) ==
PROVIDERS: PCP Family Medicine; Visit Provider Podiatrist
PROC: (CPT 11042; principal; 2025-10-09 13:00)
DX: T87.81 Dehiscence of amputation stump (principal); L97.522 Non-pressure chronic ulcer of other part of left foot with fat layer exposed; E11.65 Type 2 diabetes mellitus with hyperglycemia
CPT/HCPCS: 11042; 36415; 85652; 85025; 86140; J0690

== ENCOUNTER 2025-10-12 12:20 | Outpatient (REF) | payer MEDICAID, SELFPAY | END 2025-10-12 12:21 | disposition home or self-care (01) | LOC: LBN 12:20 | PROVIDERS: PCP Family Medicine; Visit Provider Podiatrist | DX: L97.529 Non-pressure chronic ulcer of other part of left foot with unspecified severity (principal); T81.31XA Disruption of external operation (surgical) wound, not elsewhere classified, initial encounter | CPT/HCPCS: 87070; 87075; 87205 ==

== ENCOUNTER 2025-10-16 12:14 | Day surgery (SDC) | payer MEDICAID, SELFPAY ==
--- NOTE | 2025-10-15 12:31 | W.ANESPRE ---
General Info Height: 5 ft 5 in Weight: 89.358 kg Body Mass Index (BMI): 32.8 Surgical Procedure: Operation Date: 10/16/25 13:40 Proposed Procedure Side Surgeon p Excisional Wound Debridement, Management of Wound Dehiscence Foot Left Nhung Madrigal DPM Meds Allergies and Home Medications Allergies Allergy/AdvReac Type Severity Reaction Status Date / Time grass pollen Allergy Mild Itching Verified 10/13/25 11:48 ragweed pollen Allergy Mild Itching Verified 10/13/25 11:48 Home Medication ?Medication ?Instructions ?Recorded buprenorphine 4 mg-naloxone 1 mg 1 film buccal Q24H 09/15/25 sublingual film (Suboxone) bupropion HCl 300 mg 24 hr tablet, 300 mg PO HS 09/15/25 extended release dexlansoprazole 30 mg 30 mg PO HS 09/15/25 capsule,biphase delayed release (Dexilant) venlafaxine 150 mg 150 mg PO HS 09/15/25 capsule,extended release 24 hr venlafaxine 75 mg capsule,extended 75 mg PO HS 09/15/25 release 24 hr lamotrigine 100 mg tablet 250 mg PO HS 09/19/25 omega-3 300 mg-dha 120 mg-epa 180 1 cap PO DAILY 09/22/25 mg-fish oil 1,000 mg capsule rosuvastatin 20 mg tablet 20 mg PO DAILY 09/22/25 atorvastatin 20 mg tablet (Lipitor) 20 mg PO DAILY 09/27/25 bupropion HCl 200 mg tablet,12 hr 200 mg PO BID 09/27/25 sustained-release (Wellbutrin SR) doxycycline hyclate 100 mg tablet 100 mg PO BID 09/27/25 lisinopril 20 mg tablet 30 mg PO HS 09/27/25 mupirocin 2 % topical ointment 1 applic topical TID 09/27/25 (Centany) tirzepatide 7.5 mg/0.5 mL 7.5 mg subcut QWEEK 09/27/25 subcutaneous pen injector (Mounjaro) amoxicillin 500 mg-potassium 1 tab PO BID 7 days #14 tabs 10/11/25 clavulanate 125 mg tablet (Augmentin) ciprofloxacin HCl 500 mg tablet 750 mg (1.5 x 500 mg) PO BID #14 10/11/25 tabs Current Visit Medications: Current Medications Generic Name Dose Route Start Last Admin Trade Name Aj PRN Reason Stop Dose Admin Ringer's Solution 1,000 mls @ 80 mls/hr 10/16/25 06:00 IV 10/16/25 23:59 INFUSION LISANDRO Cefazolin Sodium/Dextrose 2 gm in 50 mls @ 100 mls/hr 10/16/25 06:00 Ancef Duplex IVPB 10/16/25 23:59 PREOP LISANDRO Sodium Chloride 0 ml 10/16/25 06:00 Normal Saline Flush 10 Ml Syr IV 10/16/25 23:59 PRN PRN Sodium Chloride 0 ml 10/16/25 06:00 Normal Saline 10 Ml Vial IJ 10/16/25 23:59 DIRECTED PRN Sterile Water 0 ml 10/16/25 06:00 Water,Injection,Sterile 10 Ml Vial IJ 10/16/25 23:59 DIRECTED PRN PFSH Active Problems Active Problems: Problem Status Onset Code Contusion of left foot Acute S90.32XA Wound dehiscence, surgical Acute T81.31XA Ulcer of left foot with fat layer exposed Acute L97.522 Amputation of left great toe Acute S98.112A Tension type headache Acute G44.209 Type 2 diabetes, controlled, with neuropathy Acute E11.40 Uncontrolled diabetes mellitus with hyperglycemia Acute E11.65 Restless leg syndrome Acute G25.81 Morbid obesity Acute E66.01 Panic disorder Acute F41.0 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 Acute Z79.899 Left hand pain Acute M79.642 Knee pain Acute M25.569 Hyperlipidemia Acute E78.5 GERD (gastroesophageal reflux disease) Chronic K21.9 Dystrophic nail Acute L60.3 Depressive disorder Chronic F32.A Carpal tunnel syndrome Acute G56.00 Bipolar disorder in remission Acute F31.70 Benign essential hypertension Acute I10 Allergic rhinitis Acute J30.9 Trigger finger of left hand Acute M65.30 Medical History Medical History Opioid dependence on agonist therapy Refractory migraine without aura Ureteric stone Toe ulcer, right Counseled by counselor Chronic ulcer of right foot Chronic ulcer of toe of left foot Surgical History Surgical History History of partial ray amputation of first toe of left foot H/O adenoidectomy Previous section History of hysteroscopy Tobacco Smoking/Tobacco Use Status: Current every day Tobacco Type: e-cigarettes Smokeless tobacco user: other Counseling given: provider counseling, support medications and counseling >3 minutes Alcohol Alcohol Intake: never Substance Use Substance use: Never Vital Signs and Lab Results Lab Results Complete Blood Count: WBC, (4.4-10.8) 9.19 10^3/uL 10/09/25, 13:51 RBC, (3.93-5.22) 3.65 10^6/uL L 10/09/25, 13:51 Hgb, (11.2-15.7) 11.0 g/dL L 10/09/25, 13:51 Hct, (36.0-46.0) 34.1 % L 10/09/25, 13:51 Plt Count, (130-400) 320 10^3/uL 10/09/25, 13:51 Complete Metabolic Panel: Sodium, (136-145) 140 mmol/L 09/19/25, 10:49 Potassium, (3.5-5.1) 3.9 mmol/L 09/19/25, 10:49 Chloride, (98-107) 101 mmol/L 09/19/25, 10:49 Carbon Dioxide, (20.0-31.0) 30.2 mmol/L 09/19/25, 10:49 BUN, (9-23) 13 mg/dL 09/19/25, 10:49 Creatinine, (0.55-1.02) 0.6 mg/dL 09/19/25, 10:49 Est GFR (CKD-EPI 2020), (mL/min/1.73m2) 101.03 09/19/25, 10:49 Calcium, (8.3-10.6) 9.3 mg/dL 09/19/25, 10:49 Glucose, (74-106) 87 mg/dL 09/19/25, 10:49 Hemoglobin A1c, (<5.7) 6.1 % H 09/20/25, 06:08 C-Reactive Protein, (<=0.50) < 0.50 mg/dL 10/09/25, 13:51 Panel: Serum HCG, Qual Negative 09/19/25, 10:49 Anesthesia Assessment and Plan Anesthesia History Personal History: No History of Anesthesia Complications Family History: No Family History of Anesthesia Complications Exercise Tolerance Exercise Tolerance: Metabolic Equivalents>4 Implantable Cardiac Device Does patient have a Pacemaker or an ICD?: No Airway Exam Known Difficult Airway: No Mallampati Class: 2 Mouth Opening: Normal (> 3cm) Thyromental Distance: Greater than 3 cm Neck Range of Motion: Full ROM Neck Circumference: Normal Teeth Condition: Normal Dentition
[2025-10-16 12:48] VITALS: BP 138/89; PULSE 87; RESP 20; TEMP 36.1; O2SAT 100
[2025-10-16] MEDS: Lactated Ringers 1,000 ML 80 ML IV (13:08)
[2025-10-16] MEDS: ceFAZolin 2 GM/50 ML BAG IVPB (14:04)
[2025-10-16] MEDS: Lidocaine 1% Pres-Free 30 ML VIAL (14:18)
[2025-10-16 14:48] VITALS: BP 113/77; PULSE 74; RESP 16; TEMP 36.5; O2SAT 98
--- NOTE | 2025-10-16 14:49 | W.PM.DSUDISC ---
Date of service: 10/16/25 Discharge Plan Disposition Patient Disposition: Home Condition: Stable Discharge Details Attending Provider: Nhung Madrigal Primary Care Provider: Angel Wu Home Meds and New Rx's Prescriptions: No Action venlafaxine 75 mg capsule,extended release 24hr 75 mg PO HS venlafaxine 150 mg capsule,extended release 24hr 150 mg PO HS bupropion HCl 300 mg tablet extended release 24 hr 300 mg PO HS dexlansoprazole [Dexilant] 30 mg capsule,biphase delayed releas 30 mg PO HS buprenorphine-naloxone [Suboxone] 4-1 mg film 1 film buccal Q24H Rx Instructions: place 1 strip/tab under (each) side of tongue lamotrigine 100 mg tablet 250 mg PO HS lisinopril 20 mg tablet 30 mg PO HS atorvastatin [Lipitor] 20 mg tablet 20 mg PO DAILY bupropion HCl [Wellbutrin SR] 200 mg tablet sustained-release 12 hr 200 mg PO BID Mounjaro 7.5 mg/0.5 mL pen injector 7.5 mg subcut QWEEK mupirocin [Centany] 2 % ointment 1 applic topical TID doxycycline hyclate 100 mg tablet 100 mg PO BID ciprofloxacin HCl 500 mg tablet 750 mg PO BID Qty: 14 0RF amoxicillin-pot clavulanate [Augmentin] 500-125 mg tablet 1 tab PO BID 7 Days Qty: 14 0RF omega 3-rzp-oab-fish oil 300 mg (120 mg- 180mg)-1,000 mg capsule 1 cap PO DAILY Patient Comments: TAKE ONE CAPSULE BY MOUTH EVERY DAY rosuvastatin 20 mg tablet 20 mg PO DAILY Patient Comments: TAKE ONE TABLET BY MOUTH EVERY DAY Discharge Instructions Additional Instructions: Patient keep this in clean, dry and. The dressings get wet. Keep the left foot elevated. Please continue to use the knee scooter. Stand Alone Forms: Anesthesia Discharge Inst., Podiatry Instructions-[facility], [facility] ([facility]), Portal Information Activity:: Elevate Remove Dressings/Wound Care:: Do Not Remove Shower/Bathe:: Cover Diet:: Carb Counting Discharge Orders Discharge Orders: Discharge Order (Routine); Ordered 10/16/25 Ordered By: Nhung Madrigal DS: Diagnosis Discharge Diagnosis (1) Wound dehiscence, surgical: Status: Acute (2) Contusion of left foot: Status: Acute (3) Ulcer of left foot with fat layer exposed: Status: Acute (4) Amputation of left great toe: Status: Acute (5) Type 2 diabetes, controlled, with neuropathy: Status: Acute
--- NOTE | 2025-10-16 14:51 | ROE_ITS ---
Operative Note Operative Note PRE-OP DIAGNOSIS: Wound dehiscence, left foot POST-OP DIAGNOSIS: same PROCEDURE: Management of wound dehiscence, left foot SURGEON: Nhung Madrigal ANESTHESIA TYPE: Local By Surgeon (17 mL 1% lidocaine plain preop) Refer to Anesthesia Record ESTIMATED BLOOD LOSS: 10 COMPLICATIONS: None Patient was transported to: same day Indications: This is a 45-year-old female patient date of 1980 here for follow-up for surgical wound dehiscence of the left foot post partial first ray amputation. We have debrided the wound once before. Today, patient was advised that I would recommend attempting closure of the wound following excisional wo und debridement of all necrotic, nonviable tissue. Patient consented to the procedure. No guarantees or warranties were made or implied. I discussed the risks, benefits and possible complications of the procedure including and not limited to pain, nerve pain, CRPS, with delayed healing, nonunion, wound dehiscence, surgery need for further antibiotics., DVT, PE, stroke, . Findings: Have a necrotic wound bed and noted measuring approximately 3 cm x 2 cm x 1 cm deep. Procedure Description: Patient was brought to the operating room placed on the operating table in supine position. The left foot was then cleansed with alcohol and a Fischer block was performed using 17 mL of 1% lidocaine plain. The left lower extremity was then scrubbed, prepped and draped in the usual aseptic manner. Using a combination of rongeur, sterile #15 blade as well as Versajet the wound was excisionally debrided. All necrotic, nonviable tissue was debrided excisionally including subcutaneous tissue. This was passed from the operating field. Heavy bleeding tissue noted was noted. I attempted reapproximation of the wound, the wound edges were noted to be fairly adequately apposed manually. Using a combination of horizontal and vertical mattress suturing technique 2-0 Prolene was used to reapproximate the skin edges. Some opening was still noted. Upon complete closure of the wound dressings were then applied with Xeroform gauze, 4 x 4, Kerlix and an Jeffrey wrap. Patient tolerated the procedure well with vital signs stable and vascular status intact to the left foot. Patient is to keep the left lower extremity elevated at all times. Continue to use the knee scooter. She has an appointment to follow-up on Date of Procedure: 10/16/25
== END 2025-10-16 15:12 | disposition home or self-care (01) ==
PROVIDERS: PCP Family Medicine; Visit Provider Podiatrist
PROC: (CPT 12020; principal; 2025-10-16 13:30)
DX: T81.31XA Disruption of external operation (surgical) wound, not elsewhere classified, initial encounter (principal); E11.40 Type 2 diabetes mellitus with diabetic neuropathy, unspecified
CPT/HCPCS: 12020; 11042; J0690